=== PATIENT | male | born 1985 | race African-American/Black ===

== ENCOUNTER 2018-11-13 04:37 | Emergency (ER) | payer SELFPAY ==
[~2018-11-13] VITALS: Ht 175.3 cm; Wt 75.0 kg
[2018-11-13] MEDS ORDERED: ONDANSETRON HCL 4MG/2ML INJ IV STA (04:51)
[2018-11-13] MEDS ORDERED: LEVETIRACETAM 500MG PREMIX 100 ML IV ONE (05:00)
[2018-11-13 05:10] LABS: BASOPHILS % 0.5 % (0.0-2.0); EOSINOPHILS % 0.1 % (0.0-5.0); HEMATOCRIT. 36.4 % (42.0-52.0); LYMPHOCYTES % 13.7 % (20.0-50.0); MEAN CORPUSCULAR HEMOGLOBIN 34.5 pg (28.0-32.0); MEAN CORPUSCULAR VOLUME 96.6 fL (80.0-94.0); MEAN PLATELET VOLUME 6.8 fl (7.4-10.4); MONOCYTES % 7.7 % (2.0-8.0); PLATELET 147 x1000/uL (130-400); RED BLOOD CELL COUNT 3.77 mill/uL (4.7-6.1); RED CELL DISTRIBUTION WIDTH 17.4 % (11.6-14.6)
[2018-11-13 05:12] LABS: CHLORIDE 100 mEq/L (98-107)
[2018-11-13 05:16] LABS: ETHANOL BLOOD < 10 mg/dL
[2018-11-13 08:48] LABS: *AMPHETAMINES SCREEN URINE NEGATIVE (NEGATIVE); *BARBITURATES SCREEN URINE NEGATIVE (NEGATIVE); *BENZODIAZEPINES SCREEN URINE NEGATIVE (NEGATIVE); *COCAINE SCREEN URINE NEGATIVE (NEGATIVE); METHADONE URINE SCREEN NEGATIVE (NEGATIVE); OPIATES URINE SCREEN NEGATIVE (NEGATIVE)
[2018-11-13 08:49] LABS: CANNABINOID URINE SCREEN NEGATIVE (NEGATIVE); PHENCYCLIDINE URINE SCREEN NEGATIVE (NEGATIVE)
[2018-11-13] MEDS ORDERED: CHLORDIAZEPOXIDE 25MG CAPSULE PO ONE (10:00)
[2018-11-13 10:10] VITALS: BP 145/94
== END 2018-11-13 10:20 | disposition home or self-care (01) ==
LOC: ER 04:37
DX: R56.9 Unspecified convulsions (principal); F10.20 Alcohol dependence, uncomplicated; Y90.0 Blood alcohol level of less than 20 mg/100 ml
CPT/HCPCS: 36415; 70450; 80053; 80305; 80320; 85025; 96365; 99284; J1953; Z7610; J2405; G0480

== ENCOUNTER 2018-12-08 21:00 | Emergency (ER) | payer SELFPAY ==
[~2018-12-08] VITALS: Ht 172.7 cm; Wt 70.0 kg
[2018-12-08] MEDS ORDERED: LEVETIRACETAM 1000MG/100ML 100 ML IV ONE (21:45)
[2018-12-08] MEDS ORDERED: SODIUM CHLORIDE 0.9% 1,000 ML IV ONE (21:45)
[2018-12-08 22:09] LABS: CLARITY URINE CLOUDY (CLEAR); COLOR URINE YELLOW (YELLOW); KETONES URINE 2+ (NEGATIVE); LEUKOCYTE ESTERASE URINE NEGATIVE (NEGATIVE); NITRITE URINE NEGATIVE (NEGATIVE); OCCULT BLOOD URINE 2+ (NEGATIVE); PROTEIN URINE 3+ (NEGATIVE); SPECIFIC GRAVITY URINE 1.014 (1.005-1.030); UROBILINOGEN URINE 0.2 E.U./dL (0.2-1.0)
[2018-12-08] MEDS ORDERED: DIAZEPAM 5 MG TABLET PO ONE (22:30)
[2018-12-08] MEDS ORDERED: CHLORDIAZEPOXIDE 25MG CAPSULE PO ONE (22:30)
[2018-12-08 22:32] LABS: *AMPHETAMINES SCREEN URINE NEGATIVE (NEGATIVE); *BARBITURATES SCREEN URINE NEGATIVE (NEGATIVE)
[2018-12-08 22:34] LABS: *BENZODIAZEPINES SCREEN URINE PRESUMTIVE POSITIVE (NEGATIVE); *COCAINE SCREEN URINE NEGATIVE (NEGATIVE); CANNABINOID URINE SCREEN NEGATIVE (NEGATIVE); METHADONE URINE SCREEN NEGATIVE (NEGATIVE); OPIATES URINE SCREEN NEGATIVE (NEGATIVE); PHENCYCLIDINE URINE SCREEN NEGATIVE (NEGATIVE)
[2018-12-08 23:45] LABS: CHLORIDE 100 mEq/L (98-107)
[2018-12-08 23:49] LABS: ETHANOL BLOOD < 10 mg/dL
[2018-12-09 00:15] LABS: HEMATOCRIT. 33.2 % (42.0-52.0); HEMOGLOBIN. 11.9 g/dL (14.0-18.0); MEAN CORPUSCULAR HEMOGLOBIN 35.1 pg (28.0-32.0); MEAN CORPUSCULAR VOLUME 97.6 fL (80.0-94.0); MEAN PLATELET VOLUME 7.1 fl (7.4-10.4); PLATELET 110 x1000/uL (130-400); RED CELL DISTRIBUTION WIDTH 16.5 % (11.6-14.6)
[2018-12-09 01:57] LABS: PLATELET ESTIMATE SLIGHTLY DECREASED
[2018-12-09 02:02] VITALS: BP 122/79
== END 2018-12-09 02:08 | disposition home or self-care (01) ==
LOC: ER 21:00
DX: R56.9 Unspecified convulsions (principal); J45.909 Unspecified asthma, uncomplicated; F10.239 Alcohol dependence with withdrawal, unspecified; Y90.0 Blood alcohol level of less than 20 mg/100 ml
CPT/HCPCS: 36415; 80053; 80305; 80320; 81003; 85025; 96365; 99283; C1893; J1953; J7030; Z7610; G0480

== ENCOUNTER 2018-12-31 11:15 | Emergency (ER) | payer SELFPAY ==
[~2018-12-31] VITALS: Ht 167.6 cm; Wt 73.0 kg
[2018-12-31] MEDS ORDERED: SODIUM CHLORIDE 0.9% 1,000 ML IV ONE (12:01)
[2018-12-31] MEDS ORDERED: LORAZEPAM 2MG/ML CPJ IV STA (12:01)
[2018-12-31 12:24] LABS: BASOPHILS % 0.4 % (0.0-2.0); EOSINOPHILS % 0.1 % (0.0-5.0); HEMATOCRIT. 37.9 % (42.0-52.0); HEMOGLOBIN. 13.4 g/dL (14.0-18.0); LYMPHOCYTES % 16.7 % (20.0-50.0); MEAN CORPUSCULAR HEMOGLOBIN 33.9 pg (28.0-32.0); MEAN CORPUSCULAR VOLUME 96.1 fL (80.0-94.0); MEAN PLATELET VOLUME 7.1 fl (7.4-10.4); MONOCYTES % 5.3 % (2.0-8.0); NEUTROPHILS % 77.5 % (40.0-76.0); PLATELET 162 x1000/uL (130-400); RED BLOOD CELL COUNT 3.95 mill/uL (4.7-6.1); RED CELL DISTRIBUTION WIDTH 15.5 % (11.6-14.6)
[2018-12-31 12:31] LABS: CHLORIDE 101 mEq/L (98-107)
[2018-12-31 12:35] LABS: ETHANOL BLOOD < 10 mg/dL
[2018-12-31 12:37] LABS: CLARITY URINE CLEAR (CLEAR); COLOR URINE DARK YELLOW (YELLOW); KETONES URINE 2+ (NEGATIVE); LEUKOCYTE ESTERASE URINE NEGATIVE (NEGATIVE); NITRITE URINE NEGATIVE (NEGATIVE); OCCULT BLOOD URINE 1+ (NEGATIVE); PH URINE 5.5 (4.5-8.0); PROTEIN URINE 3+ (NEGATIVE); SPECIFIC GRAVITY URINE 1.024 (1.005-1.030)
[2018-12-31 12:58] LABS: METHADONE URINE SCREEN NEGATIVE (NEGATIVE)
[2018-12-31 12:59] LABS: *AMPHETAMINES SCREEN URINE NEGATIVE (NEGATIVE); *BARBITURATES SCREEN URINE NEGATIVE (NEGATIVE); *BENZODIAZEPINES SCREEN URINE PRESUMTIVE POSITIVE (NEGATIVE); *COCAINE SCREEN URINE NEGATIVE (NEGATIVE); CANNABINOID URINE SCREEN NEGATIVE (NEGATIVE); OPIATES URINE SCREEN NEGATIVE (NEGATIVE); PHENCYCLIDINE URINE SCREEN NEGATIVE (NEGATIVE)
[2018-12-31] MEDS ORDERED: LORAZEPAM 2MG/ML CPJ IV ONE (14:30)
[2018-12-31] MEDS: CHLORDIAZEPOXIDE 25MG CAPSULE PO SCH ×2 (14:54→15:37)
[2018-12-31 17:45] VITALS: BP 143/90
== END 2018-12-31 17:55 | disposition home or self-care (01) ==
LOC: ER 11:15
DX: F10.239 Alcohol dependence with withdrawal, unspecified (principal); Y90.0 Blood alcohol level of less than 20 mg/100 ml; F15.10 Other stimulant abuse, uncomplicated; G25.2 Other specified forms of tremor
CPT/HCPCS: 36415; 80053; 80305; 80320; 81003; 82962; 85025; 93005; 96374; 96376; 99284; J2060; J7030; G0480

== ENCOUNTER 2019-04-03 09:11 | Emergency (ER) | payer SELFPAY ==
[~2019-04-03] VITALS: Ht 165.1 cm; Wt 79.0 kg
[2019-04-03] MEDS ORDERED: LEVETIRACETAM 500MG PREMIX 100 ML IV ONE (10:30)
[2019-04-03 10:45] LABS: BASOPHILS % 0.2 % (0.0-2.0); EOSINOPHILS % 0.2 % (0.0-5.0); HEMATOCRIT. 39.2 % (42.0-52.0); HEMOGLOBIN. 13.7 g/dL (14.0-18.0); LYMPHOCYTES % 12.6 % (20.0-50.0); MEAN CORPUSCULAR HEMOGLOBIN 32.1 pg (28.0-32.0); MEAN CORPUSCULAR VOLUME 91.8 fL (80.0-94.0); MEAN PLATELET VOLUME 8.1 fl (7.4-10.4); PLATELET 129 x1000/uL (130-400); RED BLOOD CELL COUNT 4.28 mill/uL (4.7-6.1); RED CELL DISTRIBUTION WIDTH 15.2 % (11.6-14.6)
[2019-04-03 10:47] LABS: CHLORIDE 99 mEq/L (98-107)
[2019-04-03 10:55] LABS: ETHANOL BLOOD < 10 mg/dL
[2019-04-03 11:06] LABS: PHENOBARBITAL < 2.1 ug/mL (15.0-40.0); VALPROIC ACID < 3.0 ug/mL (50-100)
[2019-04-03 11:08] LABS: CARBAMAZEPINE < 0.5 ug/mL (4-12)
[2019-04-03 12:00] LABS: CLARITY URINE CLEAR (CLEAR); COLOR URINE YELLOW (YELLOW); KETONES URINE 2+ (NEGATIVE); LEUKOCYTE ESTERASE URINE NEGATIVE (NEGATIVE); NITRITE URINE NEGATIVE (NEGATIVE); OCCULT BLOOD URINE 1+ (NEGATIVE); PROTEIN URINE 3+ (NEGATIVE); SPECIFIC GRAVITY URINE 1.015 (1.005-1.030)
[2019-04-03 12:45] LABS: *AMPHETAMINES SCREEN URINE NEGATIVE (NEGATIVE); *BARBITURATES SCREEN URINE NEGATIVE (NEGATIVE); *BENZODIAZEPINES SCREEN URINE NEGATIVE (NEGATIVE); *COCAINE SCREEN URINE NEGATIVE (NEGATIVE); CANNABINOID URINE SCREEN NEGATIVE (NEGATIVE); METHADONE URINE SCREEN NEGATIVE (NEGATIVE); OPIATES URINE SCREEN NEGATIVE (NEGATIVE); PHENCYCLIDINE URINE SCREEN NEGATIVE (NEGATIVE)
[2019-04-03] MEDS ORDERED: POTASSIUM CHLORIDE 20MEQ TABLET SR PO ONE (12:45)
[2019-04-03 13:31] VITALS: BP 153/99
== END 2019-04-03 13:46 | disposition home or self-care (01) ==
LOC: ER 09:39
DX: R56.9 Unspecified convulsions (principal); E87.6 Hypokalemia; J45.909 Unspecified asthma, uncomplicated; F10.20 Alcohol dependence, uncomplicated; Y90.0 Blood alcohol level of less than 20 mg/100 ml
CPT/HCPCS: 36415; 80053; 80156; 80165; 80184; 80185; 80305; 80320; 81003; 82962; 83690; 85025; 93005; 96365; 99284; J1953; G0480

== ENCOUNTER 2019-04-20 18:24 | Inpatient (IN) | payer SELFPAY ==
[~2019-04-20] VITALS: Ht 172.7 cm; Wt 83.7 kg
[2019-04-20] MEDS ORDERED: SODIUM CHLORIDE 0.9% 1,000 ML IV ONE (21:18)
[2019-04-20 21:29] LABS: BASOPHILS % 0.8 % (0.0-2.0); HEMATOCRIT. 40.2 % (42.0-52.0); HEMOGLOBIN. 14.2 g/dL (14.0-18.0); MEAN CORPUSCULAR HEMOGLOBIN 32.4 pg (28.0-32.0); MEAN CORPUSCULAR VOLUME 91.7 fL (80.0-94.0); MONOCYTES % 5.1 % (2.0-8.0); NEUTROPHILS % 77.1 % (40.0-76.0); PLATELET 171 x1000/uL (130-400); RED BLOOD CELL COUNT 4.38 mill/uL (4.7-6.1); RED CELL DISTRIBUTION WIDTH 14.6 % (11.6-14.6)
[2019-04-20] MEDS ORDERED: LORAZEPAM 2MG/ML CPJ IV ONE (21:30)
[2019-04-20] MEDS ORDERED: LEVETIRACETAM 500MG PREMIX 100 ML IV ONE (21:30)
[2019-04-20 21:35] LABS: CHLORIDE 101 mEq/L (98-107)
[2019-04-20 21:39] LABS: ETHANOL BLOOD < 10 mg/dL
[2019-04-20 21:44] LABS: CREATINE KINASE 158 IU/L (39-308)
[2019-04-20 21:49] LABS: CARBAMAZEPINE < 0.5 ug/mL (4-12); PHENOBARBITAL < 2.1 ug/mL (15.0-40.0)
[2019-04-21] MEDS ORDERED: MORPHINE SULFATE 2 MG/ML CPJ (NOT FOR IM USE) IV ONE (00:30)
[2019-04-21] MEDS ORDERED: ONDANSETRON HCL 4MG/2ML INJ IV ONE (00:30)
[2019-04-21 01:09] LABS: HEPATITIS B SURFACE ANTIGEN NEGATIVE
[2019-04-21 01:39] LABS: HEPATITIS A AB IGM NEGATIVE (NEGATIVE)
[2019-04-21] MEDS ORDERED: MORPHINE SULFATE 2 MG/ML CPJ (NOT FOR IM USE) IV PRN (03:00)
[2019-04-21] MEDS ORDERED: LORAZEPAM 2MG/ML CPJ IV PRN (03:00)
[2019-04-21] MEDS ORDERED: ACETAMINOPHEN 325MG TABLET PO PRN (03:00)
[2019-04-21] MEDS ORDERED: ONDANSETRON HCL 4MG/2ML INJ IV PRN (03:00)
[2019-04-21] MEDS: FAMOTIDINE 20MG/2ML VIAL IV SCH ×2 (03:44→08:10)
[2019-04-21] MEDS: CLONIDINE 0.1MG TABLET PO PRN ×2 (03:44→16:20)
[2019-04-21 04:30] VITALS: BP 139/75
[2019-04-21] MEDS: DEXT 5%/0.45% NACL KCL 10MEQ/L 1,000 ML IV SCH ×2 (04:58→18:07)
[2019-04-21 08:00] VITALS: BP 132/91
[2019-04-21] MEDS: LEVETIRACETAM 500 MG in SODIUM CHLORIDE 0.9% 100 ML IV SCH ×2 (08:11→20:56)
[2019-04-21 11:51] LABS: CLARITY URINE CLEAR (CLEAR); COLOR URINE YELLOW (YELLOW); KETONES URINE 2+ (NEGATIVE); LEUKOCYTE ESTERASE URINE NEGATIVE (NEGATIVE); NITRITE URINE NEGATIVE (NEGATIVE); OCCULT BLOOD URINE NEGATIVE (NEGATIVE); PROTEIN URINE TRACE (NEGATIVE); SPECIFIC GRAVITY URINE 1.007 (1.005-1.030)
[2019-04-21 12:00] VITALS: BP 137/94
[2019-04-21 12:12] LABS: *AMPHETAMINES SCREEN URINE NEGATIVE (NEGATIVE); *BARBITURATES SCREEN URINE NEGATIVE (NEGATIVE); *BENZODIAZEPINES SCREEN URINE NEGATIVE (NEGATIVE); *COCAINE SCREEN URINE NEGATIVE (NEGATIVE); CANNABINOID URINE SCREEN NEGATIVE (NEGATIVE)
[2019-04-21 12:13] LABS: METHADONE URINE SCREEN NEGATIVE (NEGATIVE); OPIATES URINE SCREEN NEGATIVE (NEGATIVE); PHENCYCLIDINE URINE SCREEN NEGATIVE (NEGATIVE)
[2019-04-21 16:01] VITALS: BP 134/94
[2019-04-21 20:00] VITALS: BP 117/76
[2019-04-22] VITALS: BP 128/79
[2019-04-22 04:00] VITALS: BP 129/73
[2019-04-22 05:32] LABS: PROTHROMBIN TIME 10.4 sec (9.6-11.0)
[2019-04-22 05:35] LABS: CHLORIDE 103 mEq/L (98-107)
[2019-04-22] MEDS: DEXT 5%/0.45% NACL KCL 10MEQ/L 1,000 ML IV SCH (05:40)
[2019-04-22 05:46] LABS: LDL CHOLESTEROL 123 mg/dL (5-100)
[2019-04-22 05:47] LABS: HDL CHOLESTEROL 88 mg/dL (40-59)
[2019-04-22 05:51] LABS: GAMMA GLUTAMYL TRANSPEPTIDASE 1660 IU/L (11-50)
[2019-04-22 06:12] LABS: BASOPHILS % 0.3 % (0.0-2.0); EOSINOPHILS % 0.7 % (0.0-5.0); HEMATOCRIT. 37.6 % (42.0-52.0); HEMOGLOBIN. 13.2 g/dL (14.0-18.0); LYMPHOCYTES % 19.7 % (20.0-50.0); MEAN CORPUSCULAR HEMOGLOBIN 32.2 pg (28.0-32.0); MEAN CORPUSCULAR VOLUME 91.5 fL (80.0-94.0); MEAN PLATELET VOLUME 8.3 fl (7.4-10.4); MONOCYTES % 6.9 % (2.0-8.0); NEUTROPHILS % 72.4 % (40.0-76.0); PLATELET 127 x1000/uL (130-400); RED BLOOD CELL COUNT 4.11 mill/uL (4.7-6.1); RED CELL DISTRIBUTION WIDTH 14.2 % (11.6-14.6)
[2019-04-22 08:00] VITALS: BP 130/89
[2019-04-22] MEDS: LEVETIRACETAM 500 MG in SODIUM CHLORIDE 0.9% 100 ML IV SCH (09:46)
[2019-04-22] MEDS: FAMOTIDINE 20MG/2ML VIAL IV SCH (09:46)
[2019-04-22 12:00] VITALS: BP 133/93
[2019-04-22 13:54] VITALS: BP 133/99
[2019-04-23 09:09] LABS: IMMUNOGLOBULIN G 1061 mg/dL (700-1600)
[2019-04-23 13:06] LABS: ANTI-NUCLEAR ANTIBODIES DIRECT Negative (Negative)
[2019-04-25 15:10] LABS: ACTIN (SMOOTH MUSCLE) ANTIBODY 12 Units (0-19)
== END 2019-04-22 14:10 | disposition home or self-care (01) | DRG 282 ==
LOC: ER 19:31 → 6EST 04-21 00:42 → ENRESERV 04-21 01:19
PROVIDERS: ADMIT Hospitalist; ATTEND Hospitalist
DX: K85.90 Acute pancreatitis without necrosis or infection, unspecified (principal); K76.0 Fatty (change of) liver, not elsewhere classified; E80.6 Other disorders of bilirubin metabolism; G40.909 Epilepsy, unspecified, not intractable, without status epilepticus; R74.0 Nonspecific elevation of levels of transaminase and lactic acid dehydrogenase [LDH]
CPT/HCPCS: 36415; 74176; 76700; 80061; 80076; 80156; 80165; 80184; 80185; 80305; 80320; 81003; 82248; 82390; 82550; 82784; 82977; 83735; 84443; 84484; 86038; 86705; 86709; 86803; 87340; 93005; 93970; 96365; 96375; 99285; C1893; J1953; J2060; J2270; J2405; J3490; J7030; J7050; G0480

== ENCOUNTER 2019-08-29 06:39 | Emergency (ER) | payer SELFPAY ==
[~2019-08-29] VITALS: Ht 172.7 cm; Wt 77.0 kg
[2019-08-29 07:10] VITALS: BP 128/70
[2019-08-29] MEDS ORDERED: LEVETIRACETAM 1000MG/100ML 100 ML IV ONE (07:15)
[2019-08-29] MEDS ORDERED: LIDOCAINE HCL/PF 1% 10 MG/ML 5ML VIAL IJ ONE (07:15)
[2019-08-29 08:03] LABS: BASOPHILS % 0.3 % (0.0-2.0); EOSINOPHILS % 0.4 % (0.0-5.0); HEMATOCRIT. 36.9 % (42.0-52.0); MEAN CORPUSCULAR HEMOGLOBIN 33.5 pg (28.0-32.0); MEAN CORPUSCULAR VOLUME 94.9 fL (80.0-94.0); MONOCYTES % 6.8 % (2.0-8.0); NEUTROPHILS % 78.5 % (40.0-76.0); PLATELET 119 x1000/uL (130-400); RED BLOOD CELL COUNT 3.89 mill/uL (4.7-6.1); RED CELL DISTRIBUTION WIDTH 13.7 % (11.6-14.6)
[2019-08-29 08:08] LABS: CHLORIDE 100 mEq/L (98-107)
[2019-08-29 08:11] LABS: ETHANOL BLOOD < 10 mg/dL
[2019-08-29 09:01] LABS: CLARITY URINE CLEAR (CLEAR); COLOR URINE DARK YELLOW (YELLOW); KETONES URINE 1+ (NEGATIVE); LEUKOCYTE ESTERASE URINE NEGATIVE (NEGATIVE); NITRITE URINE NEGATIVE (NEGATIVE); OCCULT BLOOD URINE 2+ (NEGATIVE); PH URINE 5.5 (4.5-8.0); PROTEIN URINE 3+ (NEGATIVE); SPECIFIC GRAVITY URINE 1.017 (1.005-1.030)
[2019-08-29 09:20] LABS: *BARBITURATES SCREEN URINE NEGATIVE (NEGATIVE); *BENZODIAZEPINES SCREEN URINE NEGATIVE (NEGATIVE); *COCAINE SCREEN URINE NEGATIVE (NEGATIVE)
[2019-08-29 09:21] LABS: *AMPHETAMINES SCREEN URINE NEGATIVE (NEGATIVE); CANNABINOID URINE SCREEN NEGATIVE (NEGATIVE); METHADONE URINE SCREEN NEGATIVE (NEGATIVE); PHENCYCLIDINE URINE SCREEN NEGATIVE (NEGATIVE)
[2019-08-31 20:34] LABS: OPIATES URINE SCREEN NEGATIVE (NEGATIVE)
== END 2019-08-29 08:43 | disposition home or self-care (01) ==
LOC: ER 06:39
DX: S01.512A Laceration without foreign body of oral cavity, initial encounter (principal); R56.9 Unspecified convulsions; J45.909 Unspecified asthma, uncomplicated; X58.XXXA Exposure to other specified factors, initial encounter; Y93.89 Activity, other specified; Y92.89 Other specified places as the place of occurrence of the external cause; Y99.8 Other external cause status
CPT/HCPCS: 12011; 36415; 80053; 80305; 80320; 81003; 85025; 96374; 99283; J1953; J3490; G0480

== ENCOUNTER 2019-10-02 18:30 | Emergency (ER) | payer OTHER ==
[~2019-10-02] VITALS: Ht 175.3 cm; Wt 73.0 kg
[2019-10-02] MEDS ORDERED: SODIUM CHLORIDE 0.9% 1,000 ML IV ONE (19:08)
[2019-10-02] MEDS ORDERED: ACETAMINOPHEN 325MG TABLET PO STA (19:08)
[2019-10-02] MEDS ORDERED: CHLORHEXIDINE GLUCONATE 0.12% ORAL MOUTHWASH SSP SCH (19:15)
[2019-10-02] MEDS ORDERED: LEVETIRACETAM 1000MG/100ML 100 ML IV ONE (19:15)
[2019-10-02 19:36] LABS: BASOPHILS % 0.9 % (0.0-2.0); EOSINOPHILS % 0.3 % (0.0-5.0); HEMATOCRIT. 37.1 % (42.0-52.0); HEMOGLOBIN. 12.9 g/dL (14.0-18.0); LYMPHOCYTES % 29.9 % (20.0-50.0); MEAN CORPUSCULAR HEMOGLOBIN 33.8 pg (28.0-32.0); MEAN CORPUSCULAR VOLUME 97.4 fL (80.0-94.0); MEAN PLATELET VOLUME 8.3 fl (7.4-10.4); MONOCYTES % 7.8 % (2.0-8.0); NEUTROPHILS % 61.1 % (40.0-76.0); PLATELET 258 x1000/uL (130-400); RED BLOOD CELL COUNT 3.81 mill/uL (4.7-6.1); RED CELL DISTRIBUTION WIDTH 13.6 % (11.6-14.6)
[2019-10-02 19:39] LABS: CHLORIDE 101 mEq/L (98-107)
[2019-10-02 21:33] LABS: CLARITY URINE CLEAR (CLEAR); COLOR URINE YELLOW (YELLOW); KETONES URINE TRACE (NEGATIVE); LEUKOCYTE ESTERASE URINE NEGATIVE (NEGATIVE); NITRITE URINE NEGATIVE (NEGATIVE); OCCULT BLOOD URINE 1+ (NEGATIVE); PH URINE 5.5 (4.5-8.0); PROTEIN URINE 2+ (NEGATIVE); SPECIFIC GRAVITY URINE 1.014 (1.005-1.030)
[2019-10-02 22:23] VITALS: BP 124/71
== END 2019-10-02 22:30 | disposition home or self-care (01) ==
LOC: ER 18:30
DX: S02.2XXA Fracture of nasal bones, initial encounter for closed fracture (principal); R56.9 Unspecified convulsions; X58.XXXA Exposure to other specified factors, initial encounter; Y93.89 Activity, other specified; Y92.89 Other specified places as the place of occurrence of the external cause; Y99.8 Other external cause status; J45.909 Unspecified asthma, uncomplicated
CPT/HCPCS: 12011; 36415; 70486; 80048; 81003; 85025; 96365; 99285; J1953; J7030

== ENCOUNTER 2019-10-02 22:43 | Emergency (ER) | payer OTHER ==
[~2019-10-02] VITALS: Ht 170.2 cm; Wt 81.8 kg
[2019-10-02] MEDS ORDERED: LORAZEPAM 1MG TABLET PO ONE (23:45)
[2019-10-02] MEDS ORDERED: BACITRACIN 15GM TUBE TOP ONE (23:45)
[2019-10-03 01:21] VITALS: BP 129/81
[2019-10-03] MEDS ORDERED: LEVETIRACETAM 500MG/5ML CUP PO ONE (01:30)
== END 2019-10-03 02:07 | disposition home or self-care (01) ==
LOC: ER 22:43
DX: G40.909 Epilepsy, unspecified, not intractable, without status epilepticus (principal); S01.21XA Laceration without foreign body of nose, initial encounter; S01.511A Laceration without foreign body of lip, initial encounter; W22.8XXA Striking against or struck by other objects, initial encounter; R03.0 Elevated blood-pressure reading, without diagnosis of hypertension; Y93.89 Activity, other specified; Y92.89 Other specified places as the place of occurrence of the external cause; S09.8XXA Other specified injuries of head, initial encounter; Z91.14 Patient's other noncompliance with medication regimen
CPT/HCPCS: 82962; 99284

== ENCOUNTER 2019-10-10 19:32 | Inpatient (IN) | payer OTHER ==
[~2019-10-10] VITALS: Ht 167.6 cm; Wt 72.6 kg
[2019-10-10] MEDS ORDERED: MORPHINE SULFATE 4 MG/ML CPJ (NOT FOR IM USE) IV STA (20:07)
[2019-10-10] MEDS ORDERED: IBUPROFEN 600MG TABLET PO ONE (20:15)
[2019-10-10] MEDS ORDERED: LIDOCAINE HCL 1% 20ML VIAL (Pyxis) INJ INFIL ONE (20:15)
[2019-10-10 20:59] LABS: BASOPHILS % 0.3 % (0.0-2.0); CHLORIDE 102 mEq/L (98-107); EOSINOPHILS % 0.1 % (0.0-5.0); HEMATOCRIT. 31.4 % (42.0-52.0); HEMOGLOBIN. 11.4 g/dL (14.0-18.0); LYMPHOCYTES % 11.7 % (20.0-50.0); MEAN CORPUSCULAR HEMOGLOBIN 33.6 pg (28.0-32.0); MEAN CORPUSCULAR VOLUME 92.7 fL (80.0-94.0); MEAN PLATELET VOLUME 7.8 fl (7.4-10.4); MONOCYTES % 13.5 % (2.0-8.0); NEUTROPHILS % 74.4 % (40.0-76.0); PLATELET 337 x1000/uL (130-400); RED BLOOD CELL COUNT 3.38 mill/uL (4.7-6.1); RED CELL DISTRIBUTION WIDTH 14.4 % (11.6-14.6)
[2019-10-10] MEDS ORDERED: CEFTRIAXONE 1 G PREMIX 50 ML IV ONE (22:00)
[2019-10-10] MEDS ORDERED: VANCOMYCIN 1 G PREMIX 200 ML IV SCH (22:00)
[2019-10-10] MEDS ORDERED: MORPHINE SULFATE 4 MG/ML CPJ (NOT FOR IM USE) IV ONE (22:00)
[2019-10-10] MEDS ORDERED: ACETAMINOPHEN 325MG TABLET PO ONE (22:00)
[2019-10-10 23:45] VITALS: BP 124/77
[2019-10-11] VITALS: BP 124/77
[2019-10-11] MEDS ORDERED: MORPHINE SULFATE 2 MG/ML CPJ (NOT FOR IM USE) IV PRN (00:15)
[2019-10-11] MEDS ORDERED: KETOROLAC 30MG/ML VIAL IV PRN (00:15)
[2019-10-11] MEDS ORDERED: ACETAMINOPHEN 325MG TABLET PO PRN ×2 (00:15)
[2019-10-11] MEDS ORDERED: ZOLPIDEM TARTRATE 5MG TABLET PO PRN (00:15)
[2019-10-11] MEDS ORDERED: ONDANSETRON HCL 4MG/2ML INJ IV PRN (00:15)
[2019-10-11] MEDS ORDERED: KEPP500 MT (00:40)
[2019-10-11] MEDS ORDERED: THIA100T72 MT (00:40)
[2019-10-11] MEDS ORDERED: POTASSIUM CHLORIDE 20MEQ TABLET SR PO NR (01:00)
[2019-10-11 04:00] VITALS: BP 99/66
[2019-10-11] MEDS: INDOMETHACIN 25MG CAPSULE PO SCH ×3 (05:42→21:25)
[2019-10-11] MEDS: SODIUM CHLORIDE 0.9% INJ 3ML FLUSH IVF SCH ×3 (05:42→21:25)
[2019-10-11 08:00] VITALS: BP 110/72
[2019-10-11] MEDS: FAMOTIDINE 20MG TABLET PO SCH ×2 (08:45→21:02)
[2019-10-11] MEDS: LEVETIRACETAM 500MG TABLET PO SCH ×2 (08:45→21:02)
[2019-10-11] MEDS ORDERED: LEVETIRACETAM 500MG TABLET PO SCH (09:00)
[2019-10-11] MEDS: THIAMINE HCL 100MG TABLET PO SCH (09:41)
[2019-10-11] MEDS ORDERED: MAGNESIUM 2 G PREMIX 50 ML IV SCH (10:00)
[2019-10-11] MEDS: HYDROCODONE/ACETAMINOPHEN 10/325MG TABLET PO PRN (10:35)
[2019-10-11 12:00] VITALS: BP 137/89
[2019-10-11 16:00] VITALS: BP 121/81
[2019-10-11] MEDS: CEFTRIAXONE 1 G PREMIX 50 ML IV SCH (17:20)
[2019-10-11 20:00] VITALS: BP 105/61
[2019-10-11] MEDS: VANCOMYCIN 1250MG in DEXTROSE 5% WATER 250ML IV SCH (21:01)
[2019-10-12] VITALS: BP 111/69
[2019-10-12] MEDS: VANCOMYCIN 1250MG in DEXTROSE 5% WATER 250ML IV SCH ×3 (03:26→21:10)
[2019-10-12 04:00] VITALS: BP 101/60
[2019-10-12] MEDS: SODIUM CHLORIDE 0.9% INJ 3ML FLUSH IVF SCH ×3 (06:12→21:11)
[2019-10-12] MEDS: INDOMETHACIN 25MG CAPSULE PO SCH ×3 (06:12→21:11)
[2019-10-12 08:00] VITALS: BP 104/65
[2019-10-12] MEDS: LEVETIRACETAM 500MG TABLET PO SCH ×2 (08:48→21:10)
[2019-10-12] MEDS: FAMOTIDINE 20MG TABLET PO SCH ×2 (08:48→21:10)
[2019-10-12] MEDS: THIAMINE HCL 100MG TABLET PO SCH (08:48)
[2019-10-12 12:00] VITALS: BP 104/46
[2019-10-12 16:00] VITALS: BP 106/67
[2019-10-12] MEDS: CEFTRIAXONE 1 G PREMIX 50 ML IV SCH (17:14)
[2019-10-12 20:00] VITALS: BP 113/66
[2019-10-13] VITALS: BP 117/65
[2019-10-13] MEDS: VANCOMYCIN 1250MG in DEXTROSE 5% WATER 250ML IV SCH (03:25)
[2019-10-13 04:00] VITALS: BP 98/50
[2019-10-13] MEDS: INDOMETHACIN 25MG CAPSULE PO SCH ×2 (06:29→13:54)
[2019-10-13] MEDS: SODIUM CHLORIDE 0.9% INJ 3ML FLUSH IVF SCH ×2 (06:29→14:35)
[2019-10-13 07:55] LABS: CHLORIDE 106 mEq/L (98-107)
[2019-10-13 08:00] VITALS: BP 125/86
[2019-10-13] MEDS: FAMOTIDINE 20MG TABLET PO SCH (08:25)
[2019-10-13] MEDS: LEVETIRACETAM 500MG TABLET PO SCH (08:25)
[2019-10-13] MEDS: THIAMINE HCL 100MG TABLET PO SCH (08:25)
[2019-10-13 09:16] LABS: CLARITY URINE CLOUDY (CLEAR); COLOR URINE YELLOW (YELLOW); KETONES URINE NEGATIVE (NEGATIVE); LEUKOCYTE ESTERASE URINE 2+ (NEGATIVE); NITRITE URINE NEGATIVE (NEGATIVE); OCCULT BLOOD URINE NEGATIVE (NEGATIVE); PH URINE 5.5 (4.5-8.0); PROTEIN URINE NEGATIVE (NEGATIVE); SPECIFIC GRAVITY URINE 1.015 (1.005-1.030); UROBILINOGEN URINE 0.2 E.U./dL (0.2-1.0)
[2019-10-13] MEDS: HYDROCODONE/ACETAMINOPHEN 10/325MG TABLET PO PRN (11:36)
[2019-10-13 12:00] VITALS: BP 117/70
[2019-10-13] MEDS ORDERED: VANCOMYCIN 1 G PREMIX 200 ML IV SCH (12:00)
[2019-10-13 16:00] VITALS: BP 119/69
[2019-10-13 16:41] VITALS: BP 117/70
[2019-10-15 04:07] LABS: NEISSERIA GONORRHOEAE NAA Negative (Negative)
== END 2019-10-13 17:11 | disposition home or self-care (01) | DRG 554 ==
LOC: ER 19:32 → EDBEDREQTM 22:28 → EDBEDREQ 22:28 → EDBEDREQSVC 22:28 → ENRESERV 22:50 → 6EST 23:49
PROVIDERS: ADMIT Internal Medicine; ATTEND Internal Medicine
PROC: 0S9D3ZZ Drainage of Left Knee Joint, Percutaneous Approach (ICD-10-PCS; principal; 2019-10-10)
DX: M17.12 Unilateral primary osteoarthritis, left knee (principal); G40.909 Epilepsy, unspecified, not intractable, without status epilepticus; E83.42 Hypomagnesemia; J45.909 Unspecified asthma, uncomplicated; M10.9 Gout, unspecified
CPT/HCPCS: 36415; 73560; 80048; 80053; 80202; 81003; 83605; 83735; 84550; 85025; 85651; 86140; 87491; 87591; 89060; 97162; 99285; J0696; J2270; J3370; J3475; J3490; J7060

== ENCOUNTER 2019-11-08 11:34 | Emergency (ER) | payer OTHER ==
[~2019-11-08] VITALS: Ht 167.6 cm; Wt 82.0 kg
[~2019-11-08 11:34] MED LIST: KEPP500 MT; THIA100T72 MT
[2019-11-08] MEDS ORDERED: LORAZEPAM 2MG/ML CPJ IV ONE (12:15)
[2019-11-08 12:18] LABS: BASOPHILS % 0.4 % (0.0-2.0); EOSINOPHILS % 0.1 % (0.0-5.0); HEMOGLOBIN. 12.6 g/dL (14.0-18.0); LYMPHOCYTES % 16.9 % (20.0-50.0); MEAN CORPUSCULAR HEMOGLOBIN 32.8 pg (28.0-32.0); MEAN CORPUSCULAR VOLUME 93.9 fL (80.0-94.0); MEAN PLATELET VOLUME 7.3 fl (7.4-10.4); MONOCYTES % 6.8 % (2.0-8.0); NEUTROPHILS % 75.8 % (40.0-76.0); PLATELET 110 x1000/uL (130-400); RED BLOOD CELL COUNT 3.84 mill/uL (4.7-6.1); RED CELL DISTRIBUTION WIDTH 19.7 % (11.6-14.6)
[2019-11-08 12:20] LABS: CHLORIDE 105 mEq/L (98-107)
[2019-11-08 12:24] LABS: ETHANOL BLOOD < 10 mg/dL
[2019-11-08] MEDS ORDERED: FOLIC ACID 1 MG, THIAMINE HCL 100 MG, MVI, ADULT NO.1 10 ML in DEXTROSE 5% WATER 1,000 ML IV ONE ×4 (12:30)
[2019-11-08] MEDS ORDERED: FOLIC ACID 1 MG, MVI, ADULT NO.1 10 ML in DEXTROSE 5% WATER 1,000 ML IV SCH ×3 (12:45)
[2019-11-08 13:24] LABS: CLARITY URINE CLEAR (CLEAR); COLOR URINE DARK YELLOW (YELLOW); KETONES URINE 2+ (NEGATIVE); LEUKOCYTE ESTERASE URINE TRACE (NEGATIVE); NITRITE URINE NEGATIVE (NEGATIVE); OCCULT BLOOD URINE 2+ (NEGATIVE); PROTEIN URINE 3+ (NEGATIVE); SPECIFIC GRAVITY URINE 1.023 (1.005-1.030)
[2019-11-08 13:35] LABS: *AMPHETAMINES SCREEN URINE NEGATIVE (NEGATIVE); *BARBITURATES SCREEN URINE NEGATIVE (NEGATIVE); *BENZODIAZEPINES SCREEN URINE NEGATIVE (NEGATIVE)
[2019-11-08 13:36] LABS: *COCAINE SCREEN URINE NEGATIVE (NEGATIVE); CANNABINOID URINE SCREEN NEGATIVE (NEGATIVE); METHADONE URINE SCREEN NEGATIVE (NEGATIVE); OPIATES URINE SCREEN NEGATIVE (NEGATIVE); PHENCYCLIDINE URINE SCREEN NEGATIVE (NEGATIVE)
[2019-11-08 15:11] VITALS: BP 150/96
== END 2019-11-08 15:14 | disposition home or self-care (01) ==
LOC: ER 11:48 → CANBEDREQ 16:43
DX: F10.239 Alcohol dependence with withdrawal, unspecified (principal); Y90.0 Blood alcohol level of less than 20 mg/100 ml; K70.10 Alcoholic hepatitis without ascites; D69.6 Thrombocytopenia, unspecified; J45.909 Unspecified asthma, uncomplicated; Z79.899 Other long term (current) drug therapy
CPT/HCPCS: 36415; 70450; 71045; 80053; 80305; 80320; 81003; 83690; 85025; 93005; 96365; 96366; 96375; 99285; J2060; J3490; J7070; J3411; G0480

== ENCOUNTER 2019-11-19 17:36 | Emergency (ER) | payer OTHER ==
[~2019-11-19] VITALS: Ht 167.6 cm; Wt 73.0 kg
[2019-11-19] MEDS ORDERED: ONDANSETRON HCL 4MG/2ML INJ IV STA (18:16)
[2019-11-19] MEDS ORDERED: SODIUM CHLORIDE 0.9% 1,000 ML IV ONE (18:16)
[2019-11-19] MEDS ORDERED: LEVETIRACETAM 1000MG/100ML 100 ML IV ONE (18:30)
[2019-11-19 18:31] LABS: BASOPHILS % 0.6 % (0.0-2.0); HEMOGLOBIN. 13.6 g/dL (14.0-18.0); LYMPHOCYTES % 19.3 % (20.0-50.0); MEAN CORPUSCULAR HEMOGLOBIN 33.1 pg (28.0-32.0); MEAN CORPUSCULAR VOLUME 95.2 fL (80.0-94.0); MONOCYTES % 6.9 % (2.0-8.0); NEUTROPHILS % 73.2 % (40.0-76.0); PLATELET 225 x1000/uL (130-400); RED CELL DISTRIBUTION WIDTH 19.1 % (11.6-14.6)
[2019-11-19 18:42] LABS: CHLORIDE 106 mEq/L (98-107)
[2019-11-19 18:46] LABS: ETHANOL BLOOD < 10 mg/dL
[2019-11-19 18:54] LABS: CLARITY URINE CLEAR (CLEAR); COLOR URINE YELLOW (YELLOW); KETONES URINE 2+ (NEGATIVE); LEUKOCYTE ESTERASE URINE NEGATIVE (NEGATIVE); NITRITE URINE NEGATIVE (NEGATIVE); OCCULT BLOOD URINE 2+ (NEGATIVE); PROTEIN URINE 3+ (NEGATIVE); SPECIFIC GRAVITY URINE 1.016 (1.005-1.030); UROBILINOGEN URINE 0.2 E.U./dL (0.2-1.0)
[2019-11-19 19:08] LABS: *AMPHETAMINES SCREEN URINE NEGATIVE (NEGATIVE); *BARBITURATES SCREEN URINE NEGATIVE (NEGATIVE); *BENZODIAZEPINES SCREEN URINE NEGATIVE (NEGATIVE)
[2019-11-19 19:09] LABS: *COCAINE SCREEN URINE NEGATIVE (NEGATIVE); METHADONE URINE SCREEN NEGATIVE (NEGATIVE); OPIATES URINE SCREEN NEGATIVE (NEGATIVE); PHENCYCLIDINE URINE SCREEN NEGATIVE (NEGATIVE)
[2019-11-19 19:10] LABS: CANNABINOID URINE SCREEN NEGATIVE (NEGATIVE)
[2019-11-19 20:00] VITALS: BP 140/104
== END 2019-11-19 21:19 | disposition home or self-care (01) ==
LOC: ER 17:36
DX: G40.909 Epilepsy, unspecified, not intractable, without status epilepticus (principal); R11.0 Nausea; R03.0 Elevated blood-pressure reading, without diagnosis of hypertension
CPT/HCPCS: 36415; 80053; 80305; 80320; 81003; 82962; 85025; 96365; 96366; 96375; 99284; J1953; J2405; J7030; G0480

== ENCOUNTER 2019-12-07 19:02 | Inpatient (IN) | payer OTHER ==
[~2019-12-07] VITALS: Ht 165.1 cm; Wt 73.0 kg
[2019-12-07] MEDS ORDERED: SODIUM CHLORIDE 0.9% 1,000 ML IV ONE ×2 (19:16→21:00)
[2019-12-07] MEDS ORDERED: KETOROLAC 30MG/ML VIAL IV STA (19:16)
[2019-12-07] MEDS ORDERED: ONDANSETRON HCL 4MG/2ML INJ IV STA (19:16)
[2019-12-07 19:43] LABS: INR 1.1; PROTHROMBIN TIME 12.3 sec (9.6-11.0)
[2019-12-07 19:45] LABS: CHLORIDE 101 mEq/L (98-107)
[2019-12-07 19:50] LABS: BASOPHILS % 0.5 % (0.0-2.0); HEMATOCRIT. 40.9 % (42.0-52.0); HEMOGLOBIN. 14.4 g/dL (14.0-18.0); LYMPHOCYTES % 16.3 % (20.0-50.0); MEAN CORPUSCULAR HEMOGLOBIN 32.6 pg (28.0-32.0); MEAN CORPUSCULAR VOLUME 92.3 fL (80.0-94.0); MEAN PLATELET VOLUME 8.2 fl (7.4-10.4); MONOCYTES % 5.3 % (2.0-8.0); NEUTROPHILS % 77.9 % (40.0-76.0); PLATELET 143 x1000/uL (130-400); RED BLOOD CELL COUNT 4.43 mill/uL (4.7-6.1)
[2019-12-07] MEDS ORDERED: MORPHINE SULFATE 2 MG/ML CPJ (NOT FOR IM USE) IV PRN (23:15)
[2019-12-07 23:50] VITALS: BP 149/96
[2019-12-08] MEDS ORDERED: ONDANSETRON HCL 4MG/2ML INJ IV PRN (00:45)
[2019-12-08] MEDS ORDERED: LEVETIRACETAM 500 MG in SODIUM CHLORIDE 0.9% 100 ML IV SCH (00:45)
[2019-12-08 00:51] VITALS: BP 148/96
[2019-12-08] MEDS: MORPHINE SULFATE 2 MG/ML CPJ (NOT FOR IM USE) IV PRN ×6 (01:33→21:25)
[2019-12-08] MEDS ORDERED: FOLIC ACID 1 MG, THIAMINE HCL 100 MG, MVI, ADULT NO.1 10 ML in DEXTROSE 5% WATER 1,000 ML IV NR ×4 (03:00)
[2019-12-08 04:00] VITALS: BP 159/88
[2019-12-08 08:00] VITALS: BP 146/87
[2019-12-08 08:19] LABS: BASOPHILS % 0.2 % (0.0-2.0); EOSINOPHILS % 0.1 % (0.0-5.0); HEMATOCRIT. 37.6 % (42.0-52.0); HEMOGLOBIN. 13.3 g/dL (14.0-18.0); LYMPHOCYTES % 14.4 % (20.0-50.0); MEAN CORPUSCULAR HEMOGLOBIN 32.6 pg (28.0-32.0); MEAN CORPUSCULAR VOLUME 92.4 fL (80.0-94.0); MEAN PLATELET VOLUME 8.1 fl (7.4-10.4); NEUTROPHILS % 78.3 % (40.0-76.0); PLATELET 98 x1000/uL (130-400); RED BLOOD CELL COUNT 4.07 mill/uL (4.7-6.1); RED CELL DISTRIBUTION WIDTH 18.6 % (11.6-14.6)
[2019-12-08 08:38] LABS: CHLORIDE 100 mEq/L (98-107)
[2019-12-08 08:38] LABS: CLARITY URINE CLEAR (CLEAR); COLOR URINE YELLOW (YELLOW); KETONES URINE 3+ (NEGATIVE); LEUKOCYTE ESTERASE URINE NEGATIVE (NEGATIVE); NITRITE URINE NEGATIVE (NEGATIVE); OCCULT BLOOD URINE NEGATIVE (NEGATIVE); PH URINE 5.5 (4.5-8.0); PROTEIN URINE TRACE (NEGATIVE); SPECIFIC GRAVITY URINE 1.011 (1.005-1.030)
[2019-12-08 08:43] LABS: AMYLASE 126 IU/L (25-115)
[2019-12-08 08:45] LABS: LDL CHOLESTEROL 90 mg/dL (5-100)
[2019-12-08 08:47] LABS: HDL CHOLESTEROL 85 mg/dL (40-59)
[2019-12-08 08:50] LABS: *AMPHETAMINES SCREEN URINE NEGATIVE (NEGATIVE); *BARBITURATES SCREEN URINE NEGATIVE (NEGATIVE); *BENZODIAZEPINES SCREEN URINE NEGATIVE (NEGATIVE); *COCAINE SCREEN URINE NEGATIVE (NEGATIVE); METHADONE URINE SCREEN NEGATIVE (NEGATIVE); OPIATES URINE SCREEN PRESUMTIVE POSITIVE (NEGATIVE)
[2019-12-08 08:51] LABS: CANNABINOID URINE SCREEN NEGATIVE (NEGATIVE); PHENCYCLIDINE URINE SCREEN NEGATIVE (NEGATIVE)
[2019-12-08] MEDS: LEVETIRACETAM 500MG PREMIX 100 ML IV SCH ×2 (09:24→21:25)
[2019-12-08] MEDS: PANTOPRAZOLE SODIUM 40 MG/VIAL IV SCH (09:24)
[2019-12-08 12:00] VITALS: BP 151/98
[2019-12-08] MEDS: AMLODIPINE 5MG TABLET PO SCH (13:10)
[2019-12-08] MEDS: DEXT 5%/0.45% NACL KCL 20MEQ/L 1,000 ML IV SCH ×2 (13:37→19:45)
[2019-12-08 16:00] VITALS: BP 143/93
[2019-12-08] MEDS ORDERED: MAGNESIUM 2 G PREMIX 50 ML IV SCH (16:00)
[2019-12-08 20:00] VITALS: BP 138/104
[2019-12-09] VITALS: BP 123/84
[2019-12-09] MEDS: MORPHINE SULFATE 2 MG/ML CPJ (NOT FOR IM USE) IV PRN ×2 (01:42→08:29)
[2019-12-09] MEDS: DEXT 5%/0.45% NACL KCL 20MEQ/L 1,000 ML IV SCH (03:44)
[2019-12-09 04:00] VITALS: BP 127/89
[2019-12-09 05:57] LABS: CHLORIDE 98 mEq/L (98-107)
[2019-12-09 08:00] VITALS: BP_SYST 112; BP_SYST 121; BP_DIAS 83; BP_DIAS 84
[2019-12-09] MEDS ORDERED: POTASSIUM CHLORIDE 20MEQ TABLET SR PO SCH (08:15)
[2019-12-09] MEDS: PANTOPRAZOLE SODIUM 40 MG/VIAL IV SCH (08:28)
[2019-12-09] MEDS: LEVETIRACETAM 500MG PREMIX 100 ML IV SCH (08:28)
[2019-12-09] MEDS: AMLODIPINE 5MG TABLET PO SCH (08:29)
[2019-12-09 12:00] VITALS: BP 124/81
[2019-12-09 15:04] VITALS: BP 124/81
== END 2019-12-09 15:58 | disposition home or self-care (01) | DRG 440 ==
LOC: ER 19:02 → 6EST 21:43 → ENRESERV 23:22
PROVIDERS: ADMIT Internal Medicine; ATTEND Internal Medicine
DX: K85.90 Acute pancreatitis without necrosis or infection, unspecified (principal); E83.42 Hypomagnesemia; E87.6 Hypokalemia; F10.10 Alcohol abuse, uncomplicated; G40.909 Epilepsy, unspecified, not intractable, without status epilepticus; J45.909 Unspecified asthma, uncomplicated; I10 Essential (primary) hypertension; R16.0 Hepatomegaly, not elsewhere classified; R74.0 Nonspecific elevation of levels of transaminase and lactic acid dehydrogenase [LDH]; Z71.41 Alcohol abuse counseling and surveillance of alcoholic
CPT/HCPCS: 36415; 76705; 80048; 80053; 80061; 80305; 80320; 81003; 82150; 83735; 84484; 85025; 93005; 99285; C9113; J1885; J1953; J2270; J2405; J3411; J3475; J3490; J7030; J7070; G0480

== ENCOUNTER 2020-01-20 13:54 | Inpatient (IN) | payer OTHER ==
[~2020-01-20] VITALS: Ht 165.1 cm; Wt 69.4 kg
[~2020-01-20 13:54] MED LIST changes: +ALBU18HF2 IH
[2020-01-20] MEDS ORDERED: SODIUM CHLORIDE 0.9% 1,000 ML IV ONE (14:12)
[2020-01-20] MEDS ORDERED: MORPHINE SULFATE 4 MG/ML CPJ (NOT FOR IM USE) IV ONE (14:30)
[2020-01-20] MEDS ORDERED: CHLORDIAZEPOXIDE 25MG CAPSULE PO ONE (14:30)
[2020-01-20 15:15] LABS: BASOPHILS % 0.7 % (0.0-2.0); HEMATOCRIT. 38.8 % (42.0-52.0); HEMOGLOBIN. 13.3 g/dL (14.0-18.0); LYMPHOCYTES % 17.7 % (20.0-50.0); MEAN CORPUSCULAR HEMOGLOBIN 32.7 pg (28.0-32.0); MEAN PLATELET VOLUME 7.3 fl (7.4-10.4); MONOCYTES % 7.1 % (2.0-8.0); NEUTROPHILS % 74.5 % (40.0-76.0); PLATELET 148 x1000/uL (130-400); RED BLOOD CELL COUNT 4.08 mill/uL (4.7-6.1); RED CELL DISTRIBUTION WIDTH 16.6 % (11.6-14.6)
[2020-01-20 15:19] LABS: INR 1.1; PROTHROMBIN TIME 11.9 sec (9.6-11.0)
[2020-01-20 15:22] LABS: CHLORIDE 107 mEq/L (98-107)
[2020-01-20 15:38] LABS: CLARITY URINE CLEAR (CLEAR); COLOR URINE DARK YELLOW (YELLOW); KETONES URINE 2+ (NEGATIVE); LEUKOCYTE ESTERASE URINE NEGATIVE (NEGATIVE); NITRITE URINE NEGATIVE (NEGATIVE); OCCULT BLOOD URINE 1+ (NEGATIVE); PROTEIN URINE 3+ (NEGATIVE)
[2020-01-20] MEDS ORDERED: ONDANSETRON HCL 4MG/2ML INJ IV PRN (17:45)
[2020-01-20] MEDS ORDERED: CLONIDINE 0.1MG TABLET PO PRN (17:45)
[2020-01-20] MEDS ORDERED: IPRATROPIUM/ALBUTEROL 0.5-3(2.5)MG/3ML NEB NEB PRN (17:45)
[2020-01-20] MEDS ORDERED: DOCUSATE SODIUM 100MG CAPSULE PO PRN (17:45)
[2020-01-20] MEDS ORDERED: GUAIFENESIN 200MG/10ML SUGAR FREE UDC PO PRN (17:45)
[2020-01-20] MEDS ORDERED: MAGNESIUM/ALUMINUM HYDROXIDE/SIMETHICONE 30ML UDC PO PRN (17:45)
[2020-01-20] MEDS ORDERED: HYDRALAZINE 20MG/ML VIAL IV PRN (17:45)
[2020-01-20] MEDS ORDERED: ACETAMINOPHEN 325MG TABLET PO PRN (17:45)
[2020-01-20] MEDS: SODIUM CHLORIDE 0.45% 1,000 ML IV SCH (18:49)
[2020-01-20] MEDS: DIPHENHYDRAMINE 50MG/ML VIAL IV PRN ×2 (18:52→23:57)
[2020-01-20] MEDS: LORAZEPAM 2MG/ML CPJ IV PRN ×2 (18:52→23:57)
[2020-01-20] MEDS ORDERED: MVI, ADULT NO.1 10 ML, FOLIC ACID 1 MG, THIAMINE HCL 100 MG in SODIUM CHLORIDE 0.9% 1,0... IV NR ×4 (20:00)
[2020-01-20] MEDS ORDERED: ENOXAPARIN 40MG/0.4ML SYR SUBCUT SCH (20:00)
[2020-01-20 21:33] VITALS: BP 149/107
[2020-01-20 22:05] VITALS: BP 149/107
[2020-01-20] MEDS: HYDROCODONE/ACETAMINOPHEN 10/325MG TABLET PO PRN (22:21)
[2020-01-20] MEDS: SODIUM CHLORIDE 0.9% INJ 3ML FLUSH IVF SCH (22:21)
[2020-01-21] VITALS: BP 139/102
[2020-01-21 04:00] VITALS: BP 129/93
[2020-01-21] MEDS: SODIUM CHLORIDE 0.9% INJ 3ML FLUSH IVF SCH (05:02)
[2020-01-21] MEDS: SODIUM CHLORIDE 0.45% 1,000 ML IV SCH (05:03)
[2020-01-21 06:28] LABS: CHLORIDE 101 mEq/L (98-107)
[2020-01-21 06:42] LABS: BASOPHILS % 0.2 % (0.0-2.0); EOSINOPHILS % 0.2 % (0.0-5.0); HEMATOCRIT. 35.8 % (42.0-52.0); HEMOGLOBIN. 12.6 g/dL (14.0-18.0); LYMPHOCYTES % 19.8 % (20.0-50.0); MEAN CORPUSCULAR HEMOGLOBIN 33.1 pg (28.0-32.0); MEAN CORPUSCULAR VOLUME 94.4 fL (80.0-94.0); MEAN PLATELET VOLUME 7.9 fl (7.4-10.4); NEUTROPHILS % 70.8 % (40.0-76.0); PLATELET 106 x1000/uL (130-400); RED BLOOD CELL COUNT 3.79 mill/uL (4.7-6.1); RED CELL DISTRIBUTION WIDTH 16.3 % (11.6-14.6)
[2020-01-21 08:00] VITALS: BP 125/90
[2020-01-21 08:23] VITALS: BP 129/93
[2020-01-21] MEDS: HYDROCODONE/ACETAMINOPHEN 10/325MG TABLET PO PRN (08:23)
[2020-01-21] MEDS ORDERED: LEVETIRACETAM 500MG TABLET PO SCH (09:00)
[2020-01-21] MEDS ORDERED: POTASSIUM CHLORIDE 20MEQ TABLET SR PO NR (11:15)
== END 2020-01-21 12:30 | disposition left against medical advice (07) | DRG 439 ==
LOC: ER 14:12 → EDBEDREQ 16:40 → EDBEDREQTM 16:40 → ENRESERV 20:18 → 5WST 21:00
PROVIDERS: ADMIT Internal Medicine; ATTEND Internal Medicine
DX: K85.90 Acute pancreatitis without necrosis or infection, unspecified (principal); E87.1 Hypo-osmolality and hyponatremia; J45.909 Unspecified asthma, uncomplicated; K59.00 Constipation, unspecified; R74.8 Abnormal levels of other serum enzymes; R74.0 Nonspecific elevation of levels of transaminase and lactic acid dehydrogenase [LDH]; G40.909 Epilepsy, unspecified, not intractable, without status epilepticus; Z53.29 Procedure and treatment not carried out because of patient's decision for other reasons; F41.1 Generalized anxiety disorder; F10.10 Alcohol abuse, uncomplicated; Y90.9 Presence of alcohol in blood, level not specified; Z79.899 Other long term (current) drug therapy; Z91.19 Patient's noncompliance with other medical treatment and regimen
CPT/HCPCS: 36415; 76700; 80053; 81003; 85025; 93005; 99285; J1200; J1650; J2060; J2270; J3411; J3490; J7030

== ENCOUNTER 2020-02-07 16:06 | Emergency (ER) | payer OTHER ==
[~2020-02-07] VITALS: Ht 170.2 cm; Wt 75.0 kg
[2020-02-07] MEDS ORDERED: LEVETIRACETAM 100MG/ML ORAL SYR PO ONE (17:30)
[2020-02-07 17:31] LABS: BASOPHILS % 0.5 % (0.0-2.0); EOSINOPHILS % 0.1 % (0.0-5.0); HEMATOCRIT. 35.9 % (42.0-52.0); HEMOGLOBIN. 12.8 g/dL (14.0-18.0); LYMPHOCYTES % 16.9 % (20.0-50.0); MEAN CORPUSCULAR HEMOGLOBIN 33.8 pg (28.0-32.0); MEAN CORPUSCULAR VOLUME 95.2 fL (80.0-94.0); MEAN PLATELET VOLUME 7.6 fl (7.4-10.4); MONOCYTES % 7.8 % (2.0-8.0); NEUTROPHILS % 74.7 % (40.0-76.0); PLATELET 127 x1000/uL (130-400); RED BLOOD CELL COUNT 3.78 mill/uL (4.7-6.1); RED CELL DISTRIBUTION WIDTH 15.3 % (11.6-14.6)
[2020-02-07 17:35] LABS: CHLORIDE 103 mEq/L (98-107)
[2020-02-07 17:39] LABS: INR 1.1; PROTHROMBIN TIME 11.3 sec (9.6-11.0)
[2020-02-07] MEDS ORDERED: LORAZEPAM 2MG/ML CPJ IV ONE (17:45)
[2020-02-07 17:51] LABS: COLOR URINE YELLOW (YELLOW); KETONES URINE 1+ (NEGATIVE); LEUKOCYTE ESTERASE URINE NEGATIVE (NEGATIVE); NITRITE URINE NEGATIVE (NEGATIVE); OCCULT BLOOD URINE 2+ (NEGATIVE); PROTEIN URINE 3+ (NEGATIVE); SPECIFIC GRAVITY URINE 1.015 (1.005-1.030); UROBILINOGEN URINE 0.2 E.U./dL (0.2-1.0)
[2020-02-07 17:55] LABS: CLARITY URINE SL HAZY (CLEAR)
[2020-02-07 18:17] LABS: *AMPHETAMINES SCREEN URINE NEGATIVE (NEGATIVE); *BARBITURATES SCREEN URINE NEGATIVE (NEGATIVE); *BENZODIAZEPINES SCREEN URINE NEGATIVE (NEGATIVE); *COCAINE SCREEN URINE NEGATIVE (NEGATIVE); CANNABINOID URINE SCREEN NEGATIVE (NEGATIVE); METHADONE URINE SCREEN NEGATIVE (NEGATIVE); OPIATES URINE SCREEN NEGATIVE (NEGATIVE); PHENCYCLIDINE URINE SCREEN NEGATIVE (NEGATIVE)
[2020-02-07] MEDS ORDERED: MAGNESIUM 2 G PREMIX 50 ML IV ONE (19:30)
[2020-02-07 22:44] VITALS: BP 131/91
== END 2020-02-07 22:45 | disposition home or self-care (01) ==
LOC: ER 16:06
DX: G40.909 Epilepsy, unspecified, not intractable, without status epilepticus (principal); F10.20 Alcohol dependence, uncomplicated; J45.909 Unspecified asthma, uncomplicated; Z79.899 Other long term (current) drug therapy; Z87.19 Personal history of other diseases of the digestive system; Z87.09 Personal history of other diseases of the respiratory system; Y90.9 Presence of alcohol in blood, level not specified
CPT/HCPCS: 36415; 80053; 80305; 81003; 82962; 85025; 85610; 93005; 96365; 96375; 99285; J2060; J3475

== ENCOUNTER 2020-02-22 11:42 | Emergency (ER) | payer OTHER ==
[~2020-02-22] VITALS: Ht 175.3 cm; Wt 80.0 kg
[2020-02-22] MEDS ORDERED: FAMOTIDINE 20MG/2ML VIAL IV STA (12:16)
[2020-02-22] MEDS ORDERED: SODIUM CHLORIDE 0.9% 1,000 ML IV ONE (12:16)
[2020-02-22] MEDS ORDERED: ONDANSETRON HCL 4MG/2ML INJ IV STA (12:16)
[2020-02-22] MEDS ORDERED: LORAZEPAM 2MG/ML CPJ IV ONE (12:30)
[2020-02-22 12:52] LABS: BASOPHILS % 1.1 % (0.0-2.0); EOSINOPHILS % 0.1 % (0.0-5.0); HEMATOCRIT. 36.4 % (42.0-52.0); HEMOGLOBIN. 12.8 g/dL (14.0-18.0); LYMPHOCYTES % 22.6 % (20.0-50.0); MEAN CORPUSCULAR VOLUME 97.2 fL (80.0-94.0); MEAN PLATELET VOLUME 7.2 fl (7.4-10.4); NEUTROPHILS % 70.2 % (40.0-76.0); PLATELET 103 x1000/uL (130-400); RED BLOOD CELL COUNT 3.75 mill/uL (4.7-6.1); RED CELL DISTRIBUTION WIDTH 16.4 % (11.6-14.6)
[2020-02-22 12:55] LABS: CHLORIDE 103 mEq/L (98-107)
[2020-02-22 12:59] LABS: ETHANOL BLOOD 131 mg/dL
[2020-02-22 14:40] VITALS: BP 139/93
[2020-02-22 14:57] LABS: CLARITY URINE CLEAR (CLEAR); COLOR URINE YELLOW (YELLOW); KETONES URINE 4+ (NEGATIVE); LEUKOCYTE ESTERASE URINE NEGATIVE (NEGATIVE); NITRITE URINE NEGATIVE (NEGATIVE); OCCULT BLOOD URINE NEGATIVE (NEGATIVE); PROTEIN URINE 2+ (NEGATIVE); SPECIFIC GRAVITY URINE 1.027 (1.005-1.030); UROBILINOGEN URINE 0.2 E.U./dL (0.2-1.0)
[2020-02-22 15:26] LABS: *AMPHETAMINES SCREEN URINE NEGATIVE (NEGATIVE); *BARBITURATES SCREEN URINE NEGATIVE (NEGATIVE); *BENZODIAZEPINES SCREEN URINE NEGATIVE (NEGATIVE)
[2020-02-22 15:27] LABS: *COCAINE SCREEN URINE NEGATIVE (NEGATIVE)
[2020-02-22 15:28] LABS: METHADONE URINE SCREEN NEGATIVE (NEGATIVE)
[2020-02-22 15:29] LABS: CANNABINOID URINE SCREEN NEGATIVE (NEGATIVE); OPIATES URINE SCREEN NEGATIVE (NEGATIVE); PHENCYCLIDINE URINE SCREEN NEGATIVE (NEGATIVE)
== END 2020-02-22 15:43 | disposition home or self-care (01) ==
LOC: ER 11:42
DX: F10.239 Alcohol dependence with withdrawal, unspecified (principal); K70.10 Alcoholic hepatitis without ascites; G40.909 Epilepsy, unspecified, not intractable, without status epilepticus; Y90.6 Blood alcohol level of 120-199 mg/100 ml; R03.0 Elevated blood-pressure reading, without diagnosis of hypertension; D61.818 Other pancytopenia; D72.819 Decreased white blood cell count, unspecified; Z87.19 Personal history of other diseases of the digestive system
CPT/HCPCS: 36415; 70450; 80053; 80305; 80320; 81003; 83690; 85025; 96361; 96374; 96375; 99284; J2060; J2405; J3490; J7030; G0480

== ENCOUNTER 2020-03-03 10:43 | Emergency (ER) | payer OTHER ==
[~2020-03-03] VITALS: Ht 167.6 cm; Wt 73.0 kg
[2020-03-03] MEDS ORDERED: ONDANSETRON HCL 4MG/2ML INJ IV STA (11:19)
[2020-03-03] MEDS ORDERED: MORPHINE SULFATE 4 MG/ML CPJ (NOT FOR IM USE) IV STA (11:19)
[2020-03-03] MEDS ORDERED: SODIUM CHLORIDE 0.9% 1,000 ML IV ONE (11:19)
[2020-03-03 11:56] LABS: BASOPHILS % 0.4 % (0.0-2.0); EOSINOPHILS % 0.1 % (0.0-5.0); HEMOGLOBIN. 13.1 g/dL (14.0-18.0); LYMPHOCYTES % 24.3 % (20.0-50.0); MEAN CORPUSCULAR HEMOGLOBIN 34.2 pg (28.0-32.0); MEAN PLATELET VOLUME 7.1 fl (7.4-10.4); MONOCYTES % 8.7 % (2.0-8.0); NEUTROPHILS % 66.5 % (40.0-76.0); PLATELET 100 x1000/uL (130-400); RED BLOOD CELL COUNT 3.84 mill/uL (4.7-6.1)
[2020-03-03 12:14] LABS: CHLORIDE 103 mEq/L (98-107)
[2020-03-03 12:17] LABS: ETHANOL BLOOD 41 mg/dL
[2020-03-03 14:03] VITALS: BP 150/95
[2020-03-03 14:16] LABS: CLARITY URINE CLEAR (CLEAR); COLOR URINE DK YELLOW (YELLOW); KETONES URINE 1+ (NEGATIVE); LEUKOCYTE ESTERASE URINE NEGATIVE (NEGATIVE); NITRITE URINE NEGATIVE (NEGATIVE); OCCULT BLOOD URINE TRACE (NEGATIVE); PH URINE 6.5 (4.5-8.0); PROTEIN URINE 2+ (NEGATIVE); SPECIFIC GRAVITY URINE 1.015 (1.005-1.030)
[2020-03-03 14:17] LABS: *AMPHETAMINES SCREEN URINE NEGATIVE (NEGATIVE)
[2020-03-03 14:18] LABS: *BARBITURATES SCREEN URINE NEGATIVE (NEGATIVE); *BENZODIAZEPINES SCREEN URINE NEGATIVE (NEGATIVE); *COCAINE SCREEN URINE NEGATIVE (NEGATIVE); CANNABINOID URINE SCREEN NEGATIVE (NEGATIVE); METHADONE URINE SCREEN NEGATIVE (NEGATIVE); OPIATES URINE SCREEN NEGATIVE (NEGATIVE); PHENCYCLIDINE URINE SCREEN NEGATIVE (NEGATIVE)
== END 2020-03-03 15:26 | disposition home or self-care (01) ==
LOC: ER 10:43
DX: R10.13 Epigastric pain (principal); F10.229 Alcohol dependence with intoxication, unspecified; K70.30 Alcoholic cirrhosis of liver without ascites; Y90.2 Blood alcohol level of 40-59 mg/100 ml; R03.0 Elevated blood-pressure reading, without diagnosis of hypertension; G40.909 Epilepsy, unspecified, not intractable, without status epilepticus
CPT/HCPCS: 36415; 71045; 74176; 80053; 80305; 80320; 81003; 83690; 85025; 93005; 96361; 96374; 96375; 99285; J2270; J2405; J7030; G0480

== ENCOUNTER 2020-10-03 20:42 | Inpatient (IN) | payer OTHER ==
[~2020-10-03] VITALS: Ht 172.7 cm; Wt 72.6 kg
[2020-10-03] MEDS ORDERED: ONDANSETRON HCL 4MG/2ML INJ IV STA (23:42)
[2020-10-03] MEDS ORDERED: MORPHINE SULFATE 4 MG/ML CPJ (NOT FOR IM USE) IV STA (23:42)
[2020-10-03] MEDS ORDERED: FAMOTIDINE 20MG/2ML VIAL IV STA (23:42)
[2020-10-03] MEDS ORDERED: SODIUM CHLORIDE 0.9% 1,000 ML IV ONE (23:45)
[2020-10-04] LABS: BASOPHILS % 0.6 % (0.0-2.0); EOSINOPHILS % 0.3 % (0.0-5.0); HEMATOCRIT. 42.3 % (42.0-52.0); HEMOGLOBIN. 14.7 g/dL (14.0-18.0); MEAN CORPUSCULAR HEMOGLOBIN 31.3 pg (28.0-32.0); MEAN CORPUSCULAR VOLUME 90.4 fL (80.0-94.0); MEAN PLATELET VOLUME 7.2 fl (7.4-10.4); NEUTROPHILS % 76.1 % (40.0-76.0); PLATELET 312 x1000/uL (130-400); RED BLOOD CELL COUNT 4.68 mill/uL (4.7-6.1); RED CELL DISTRIBUTION WIDTH 16.8 % (11.6-14.6)
[2020-10-04 00:07] LABS: *AMPHETAMINES SCREEN URINE PRESUMTIVE POSITIVE (NEGATIVE); *BARBITURATES SCREEN URINE NEGATIVE (NEGATIVE); *BENZODIAZEPINES SCREEN URINE NEGATIVE (NEGATIVE); *COCAINE SCREEN URINE NEGATIVE (NEGATIVE)
[2020-10-04 00:08] LABS: CANNABINOID URINE SCREEN PRESUMTIVE POSITIVE (NEGATIVE); METHADONE URINE SCREEN NEGATIVE (NEGATIVE); OPIATES URINE SCREEN NEGATIVE (NEGATIVE); PHENCYCLIDINE URINE SCREEN NEGATIVE (NEGATIVE)
[2020-10-04 00:12] LABS: CHLORIDE 106 mEq/L (98-107)
[2020-10-04 00:17] LABS: ETHANOL BLOOD < 10 mg/dL
[2020-10-04] MEDS ORDERED: MAGNESIUM/ALUMINUM HYDROXIDE/SIMETHICONE 30ML UDC PO PRN (07:00)
[2020-10-04] MEDS ORDERED: ACETAMINOPHEN 325MG TABLET PO PRN (07:00)
[2020-10-04] MEDS ORDERED: LORAZEPAM 2MG/ML CPJ IV PRN (07:00)
[2020-10-04] MEDS ORDERED: TRAMADOL 50MG TABLET PO PRN (07:00)
[2020-10-04] MEDS ORDERED: CLONIDINE 0.1MG TABLET PO PRN (07:00)
[2020-10-04] MEDS ORDERED: DOCUSATE SODIUM 100MG CAPSULE PO PRN (07:00)
[2020-10-04] MEDS ORDERED: DIPHENHYDRAMINE 50MG/ML VIAL IV PRN (07:00)
[2020-10-04] MEDS ORDERED: ONDANSETRON HCL 4MG/2ML INJ IV PRN (07:00)
[2020-10-04] MEDS ORDERED: IPRATROPIUM/ALBUTEROL 0.5-3(2.5)MG/3ML NEB HHN PRN (07:00)
[2020-10-04] MEDS ORDERED: GUAIFENESIN 200MG/10ML SUGAR FREE UDC PO PRN (07:00)
[2020-10-04] MEDS ORDERED: HYDRALAZINE 20MG/ML VIAL IV PRN (07:00)
[2020-10-04] MEDS: DEXT 5%/0.45% NACL 1000ML 1,000 ML IV SCH ×2 (08:15→15:00)
[2020-10-04 09:30] VITALS: BP 141/99
[2020-10-04] MEDS: ENOXAPARIN 40MG/0.4ML SYR SUBCUT SCH (09:43)
[2020-10-04] MEDS: THIAMINE HCL 100MG TABLET PO SCH (09:43)
[2020-10-04] MEDS: LEVETIRACETAM 500MG TABLET PO SCH ×2 (09:43→18:08)
[2020-10-04 12:00] VITALS: BP 141/99
[2020-10-04] MEDS: SODIUM CHLORIDE 0.9% INJ 3ML FLUSH IVF SCH (14:17)
[2020-10-04 16:00] VITALS: BP 159/106
[2020-10-04] MEDS: MORPHINE SULFATE 2 MG/ML CPJ (NOT FOR IM USE) IV PRN (18:08)
[2020-10-04 20:00] VITALS: BP 136/82
[2020-10-05] VITALS: BP 164/99
[2020-10-05] MEDS: SODIUM CHLORIDE 0.9% INJ 3ML FLUSH IVF SCH ×2 (00:09→07:00)
[2020-10-05] MEDS: MORPHINE SULFATE 2 MG/ML CPJ (NOT FOR IM USE) IV PRN ×2 (00:10→09:58)
[2020-10-05 04:00] VITALS: BP 163/87
[2020-10-05] MEDS: DEXT 5%/0.45% NACL 1000ML 1,000 ML IV SCH ×2 (07:02→09:33)
[2020-10-05 07:31] LABS: BASOPHILS % 0.4 % (0.0-2.0); EOSINOPHILS % 1.9 % (0.0-5.0); HEMATOCRIT. 38.4 % (42.0-52.0); LYMPHOCYTES % 21.3 % (20.0-50.0); MEAN CORPUSCULAR HEMOGLOBIN 31.3 pg (28.0-32.0); MEAN CORPUSCULAR VOLUME 92.5 fL (80.0-94.0); MEAN PLATELET VOLUME 7.6 fl (7.4-10.4); MONOCYTES % 9.5 % (2.0-8.0); NEUTROPHILS % 66.9 % (40.0-76.0); PLATELET 148 x1000/uL (130-400); RED BLOOD CELL COUNT 4.15 mill/uL (4.7-6.1); RED CELL DISTRIBUTION WIDTH 16.5 % (11.6-14.6)
[2020-10-05 08:00] VITALS: BP 140/94
[2020-10-05 08:21] LABS: CHLORIDE 103 mEq/L (98-107)
[2020-10-05] MEDS: THIAMINE HCL 100MG TABLET PO SCH (09:28)
[2020-10-05] MEDS: LEVETIRACETAM 500MG TABLET PO SCH (09:28)
[2020-10-05] MEDS: ENOXAPARIN 40MG/0.4ML SYR SUBCUT SCH (09:29)
[2020-10-05 12:00] VITALS: BP 137/106
[2020-10-05 13:49] VITALS: BP 140/94
== END 2020-10-05 15:59 | disposition home or self-care (01) | DRG 440 ==
LOC: ER 20:42 → 6EST 10-04 02:45 → ENRESERV 10-04 08:18
PROVIDERS: ADMIT Internal Medicine; ATTEND Internal Medicine
DX: K85.90 Acute pancreatitis without necrosis or infection, unspecified (principal); F12.90 Cannabis use, unspecified, uncomplicated; F15.90 Other stimulant use, unspecified, uncomplicated; F41.1 Generalized anxiety disorder; F10.10 Alcohol abuse, uncomplicated; G40.909 Epilepsy, unspecified, not intractable, without status epilepticus; J45.909 Unspecified asthma, uncomplicated; Z91.19 Patient's noncompliance with other medical treatment and regimen
CPT/HCPCS: 36415; 76700; 80048; 80053; 80305; 80320; 83605; 85025; 93005; 99285; J1650; J2270; J2405; J3490; J7030; G0480

== ENCOUNTER 2020-12-28 18:27 | Emergency (ER) | payer OTHER ==
[~2020-12-28] VITALS: Ht 170.2 cm; Wt 74.0 kg
[2020-12-28] MEDS ORDERED: KETOROLAC 30MG/ML VIAL IV STA (18:53)
[2020-12-28] MEDS ORDERED: SODIUM CHLORIDE 0.9% 1,000 ML IV ONE (19:00)
[2020-12-28 19:11] LABS: BASOPHILS % 0.7 % (0.0-2.0); EOSINOPHILS % 0.2 % (0.0-5.0); HEMATOCRIT. 38.2 % (42.0-52.0); HEMOGLOBIN. 13.6 g/dL (14.0-18.0); LYMPHOCYTES % 20.4 % (20.0-50.0); MEAN CORPUSCULAR HEMOGLOBIN 32.1 pg (28.0-32.0); MEAN CORPUSCULAR VOLUME 90.3 fL (80.0-94.0); MEAN PLATELET VOLUME 6.7 fl (7.4-10.4); MONOCYTES % 4.6 % (2.0-8.0); NEUTROPHILS % 74.1 % (40.0-76.0); PLATELET 231 x1000/uL (130-400); RED BLOOD CELL COUNT 4.23 mill/uL (4.7-6.1); RED CELL DISTRIBUTION WIDTH 17.7 % (11.6-14.6)
[2020-12-28 19:17] LABS: CHLORIDE 102 mEq/L (98-107)
[2020-12-28 19:22] LABS: ETHANOL BLOOD 172 mg/dL
[2020-12-28] MEDS ORDERED: POTASSIUM CHLORIDE 20MEQ TABLET SR PO ONE (19:30)
[2020-12-28] MEDS ORDERED: MORPHINE SULFATE 4 MG/ML CPJ (NOT FOR IM USE) IV STA (22:21)
[2020-12-28] MEDS ORDERED: ONDANSETRON HCL 4MG/2ML INJ IV STA (22:21)
[2020-12-28] MEDS ORDERED: IBUP-2029 MT (22:23)
[2020-12-28 23:09] VITALS: BP 148/91
[2020-12-28] MEDS ORDERED: CHLORDIAZEPOXIDE 5 MG CAPSULE PO NR (23:45)
[2020-12-28] MEDS ORDERED: CHLORDIAZEPOXIDE 25MG CAPSULE PO ONE (23:45)
== END 2020-12-28 23:11 | disposition home or self-care (01) ==
LOC: EDBD → ER 18:27
DX: K85.90 Acute pancreatitis without necrosis or infection, unspecified (principal); T51.0X1A Toxic effect of ethanol, accidental (unintentional), initial encounter; F10.129 Alcohol abuse with intoxication, unspecified; Y90.6 Blood alcohol level of 120-199 mg/100 ml; Y92.89 Other specified places as the place of occurrence of the external cause; R00.0 Tachycardia, unspecified; G40.909 Epilepsy, unspecified, not intractable, without status epilepticus; F12.90 Cannabis use, unspecified, uncomplicated
CPT/HCPCS: 36415; 80053; 80320; 83690; 85025; 93005; 96374; 96375; 99284; J1885; J2270; J2405; J7030; G0480

== ENCOUNTER 2021-01-21 07:45 | Inpatient (IN) | payer OTHER ==
[~2021-01-21] VITALS: Ht 167.6 cm; Wt 70.5 kg
[~2021-01-21 07:45] MED LIST changes: +IBUP-2029 MT
[2021-01-21] MEDS ORDERED: ONDANSETRON HCL 4MG/2ML INJ IV STA (08:05)
[2021-01-21] MEDS ORDERED: MORPHINE SULFATE 4 MG/ML CPJ (NOT FOR IM USE) IV STA (08:05)
[2021-01-21] MEDS ORDERED: SODIUM CHLORIDE 0.9% 1,000 ML IV ONE (08:15)
[2021-01-21 08:48] LABS: BASOPHILS % 0.6 % (0.0-2.0); EOSINOPHILS % 0.3 % (0.0-5.0); HEMATOCRIT. 34.4 % (42.0-52.0); HEMOGLOBIN. 12.2 g/dL (14.0-18.0); LYMPHOCYTES % 19.5 % (20.0-50.0); MEAN CORPUSCULAR HEMOGLOBIN 32.8 pg (28.0-32.0); MEAN CORPUSCULAR VOLUME 92.4 fL (80.0-94.0); MEAN PLATELET VOLUME 7.2 fl (7.4-10.4); MONOCYTES % 7.8 % (2.0-8.0); NEUTROPHILS % 71.8 % (40.0-76.0); PLATELET 127 x1000/uL (130-400); RED BLOOD CELL COUNT 3.72 mill/uL (4.7-6.1); RED CELL DISTRIBUTION WIDTH 16.7 % (11.6-14.6)
[2021-01-21 08:52] LABS: CHLORIDE 105 mEq/L (98-107)
[2021-01-21 08:56] LABS: INR 1.1; PROTHROMBIN TIME 11.3 sec (9.6-11.0)
[2021-01-21] MEDS ORDERED: CHLORDIAZEPOXIDE 25MG CAPSULE PO ONE (09:15)
[2021-01-21] MEDS ORDERED: LEVETIRACETAM 500MG TABLET PO ONE (09:15)
[2021-01-21] MEDS: CHLORDIAZEPOXIDE 5 MG CAPSULE PO SCH ×2 (09:31→09:32)
[2021-01-21] MEDS ORDERED: LORAZEPAM 2MG/ML CPJ IV ONE (10:00)
[2021-01-21] MEDS ORDERED: CLONIDINE 0.1MG TABLET PO PRN (11:30)
[2021-01-21] MEDS ORDERED: DOCUSATE SODIUM 100MG CAPSULE PO PRN (11:30)
[2021-01-21] MEDS ORDERED: ACETAMINOPHEN 650MG/20.3ML UDC GT PRN ×2 (11:30)
[2021-01-21] MEDS ORDERED: GUAIFENESIN 200MG/10ML SUGAR FREE UDC PO PRN (11:30)
[2021-01-21] MEDS ORDERED: ONDANSETRON HCL 4MG/2ML INJ IV PRN (11:30)
[2021-01-21] MEDS ORDERED: ACETAMINOPHEN 325MG TABLET PO PRN ×2 (11:30)
[2021-01-21] MEDS ORDERED: MORPHINE SULFATE 2 MG/ML CPJ (NOT FOR IM USE) IV PRN (11:30)
[2021-01-21] MEDS ORDERED: ACETAMINOPHEN 650MG SUPP PR PRN ×2 (11:30)
[2021-01-21] MEDS ORDERED: MAGNESIUM/ALUMINUM HYDROXIDE/SIMETHICONE 30ML UDC PO PRN (11:30)
[2021-01-21] MEDS: DEXT 5%/0.45% NACL 1000ML 1,000 ML IV SCH ×2 (13:43→23:41)
[2021-01-21] MEDS: ENOXAPARIN 40MG/0.4ML SYR SUBCUT SCH (13:43)
[2021-01-21] MEDS: FAMOTIDINE 20MG/2ML VIAL IV SCH ×2 (13:44→23:10)
[2021-01-21 15:54] LABS: CLARITY URINE CLEAR (CLEAR); COLOR URINE YELLOW (YELLOW); KETONES URINE 1+ (NEGATIVE); LEUKOCYTE ESTERASE URINE NEGATIVE (NEGATIVE); NITRITE URINE NEGATIVE (NEGATIVE); OCCULT BLOOD URINE 1+ (NEGATIVE); PROTEIN URINE 2+ (NEGATIVE); SPECIFIC GRAVITY URINE 1.015 (1.005-1.030)
[2021-01-21] MEDS ORDERED: NALOXONE HCL 0.4MG/ML VIAL IV PRN (16:00)
[2021-01-21 16:21] LABS: *AMPHETAMINES SCREEN URINE NEGATIVE (NEGATIVE)
[2021-01-21 16:22] LABS: *BARBITURATES SCREEN URINE NEGATIVE (NEGATIVE); *BENZODIAZEPINES SCREEN URINE NEGATIVE (NEGATIVE); *COCAINE SCREEN URINE NEGATIVE (NEGATIVE); METHADONE URINE SCREEN NEGATIVE (NEGATIVE); OPIATES URINE SCREEN PRESUMTIVE POSITIVE (NEGATIVE); PHENCYCLIDINE URINE SCREEN NEGATIVE (NEGATIVE)
[2021-01-21 16:23] LABS: CANNABINOID URINE SCREEN NEGATIVE (NEGATIVE)
[2021-01-21] MEDS: LEVETIRACETAM 500MG TABLET PO SCH (23:10)
[2021-01-21] MEDS ORDERED: POTASSIUM CHLORIDE 20MEQ TABLET SR PO NR (23:30)
[2021-01-21] MEDS ORDERED: DIPHENHYDRAMINE 25MG CAPSULE PO PRN (23:30)
[2021-01-21] MEDS: ZOLPIDEM TARTRATE 5MG TABLET PO PRN (23:58)
[2021-01-22] VITALS: BP_SYST 125; BP_SYST 148; BP_DIAS 63; BP_DIAS 84
[2021-01-22 04:00] VITALS: BP 132/69
[2021-01-22 06:02] LABS: BASOPHILS % 0.7 % (0.0-2.0); EOSINOPHILS % 0.8 % (0.0-5.0); HEMATOCRIT. 34.6 % (42.0-52.0); LYMPHOCYTES % 21.9 % (20.0-50.0); MEAN CORPUSCULAR HEMOGLOBIN 32.8 pg (28.0-32.0); MEAN CORPUSCULAR VOLUME 94.9 fL (80.0-94.0); MEAN PLATELET VOLUME 7.5 fl (7.4-10.4); MONOCYTES % 7.9 % (2.0-8.0); NEUTROPHILS % 68.7 % (40.0-76.0); PLATELET 95 x1000/uL (130-400); RED BLOOD CELL COUNT 3.65 mill/uL (4.7-6.1); RED CELL DISTRIBUTION WIDTH 16.3 % (11.6-14.6)
[2021-01-22 06:14] LABS: CHLORIDE 103 mEq/L (98-107)
[2021-01-22 06:27] LABS: LDL CHOLESTEROL 134 mg/dL (5-100)
[2021-01-22 06:29] LABS: HDL CHOLESTEROL 113 mg/dL (40-59)
[2021-01-22 08:31] VITALS: BP 136/98
[2021-01-22] MEDS: FAMOTIDINE 20MG/2ML VIAL IV SCH (09:06)
[2021-01-22] MEDS: LEVETIRACETAM 500MG TABLET PO SCH ×2 (09:06→20:47)
[2021-01-22] MEDS: ENOXAPARIN 40MG/0.4ML SYR SUBCUT SCH (09:07)
[2021-01-22] MEDS: DEXT 5%/0.45% NACL 1000ML 1,000 ML IV SCH ×2 (09:07→18:00)
[2021-01-22 12:09] VITALS: BP 136/96
[2021-01-22] MEDS ORDERED: POTASSIUM CHLORIDE 20MEQ TABLET SR PO NR (13:00)
[2021-01-22 16:25] VITALS: BP 138/100
[2021-01-22 20:00] VITALS: BP 124/97
[2021-01-22] MEDS: FAMOTIDINE 20MG TABLET PO SCH (20:47)
[2021-01-22] MEDS: ZOLPIDEM TARTRATE 5MG TABLET PO PRN (23:46)
[2021-01-23] VITALS: BP 127/89
[2021-01-23 04:00] VITALS: BP 120/80
[2021-01-23] MEDS: DEXT 5%/0.45% NACL 1000ML 1,000 ML IV SCH (04:00)
[2021-01-23 06:31] LABS: BASOPHILS % 0.5 % (0.0-2.0); EOSINOPHILS % 1.3 % (0.0-5.0); LYMPHOCYTES % 34.9 % (20.0-50.0); MEAN CORPUSCULAR HEMOGLOBIN 32.8 pg (28.0-32.0); MEAN PLATELET VOLUME 8.2 fl (7.4-10.4); MONOCYTES % 8.8 % (2.0-8.0); NEUTROPHILS % 54.5 % (40.0-76.0); PLATELET 91 x1000/uL (130-400); RED BLOOD CELL COUNT 3.65 mill/uL (4.7-6.1); RED CELL DISTRIBUTION WIDTH 16.6 % (11.6-14.6)
[2021-01-23 06:44] LABS: CHLORIDE 104 mEq/L (98-107)
[2021-01-23] MEDS: ENOXAPARIN 40MG/0.4ML SYR SUBCUT SCH (09:00)
[2021-01-23] MEDS: LEVETIRACETAM 500MG TABLET PO SCH ×2 (09:09→22:15)
[2021-01-23] MEDS: FOLIC ACID 1MG TABLET PO SCH (09:09)
[2021-01-23] MEDS: THIAMINE HCL 100MG TABLET PO SCH (09:09)
[2021-01-23] MEDS: FAMOTIDINE 20MG TABLET PO SCH ×2 (09:09→22:16)
[2021-01-23 12:00] VITALS: BP 120/89
[2021-01-23 16:00] VITALS: BP 128/92
[2021-01-23 20:00] VITALS: BP 129/91
[2021-01-23] MEDS: ZOLPIDEM TARTRATE 5MG TABLET PO PRN (22:15)
[2021-01-24] MEDS: DEXT 5%/0.45% NACL 1000ML 1,000 ML IV SCH ×2 (00:29)
[2021-01-24 04:00] VITALS: BP 115/82
[2021-01-24 06:17] LABS: BASOPHILS % 0.2 % (0.0-2.0); EOSINOPHILS % 0.9 % (0.0-5.0); HEMATOCRIT. 35.7 % (42.0-52.0); HEMOGLOBIN. 12.4 g/dL (14.0-18.0); LYMPHOCYTES % 10.2 % (20.0-50.0); MEAN CORPUSCULAR HEMOGLOBIN 33.1 pg (28.0-32.0); MEAN CORPUSCULAR VOLUME 95.8 fL (80.0-94.0); MEAN PLATELET VOLUME 8.4 fl (7.4-10.4); MONOCYTES % 5.2 % (2.0-8.0); NEUTROPHILS % 83.5 % (40.0-76.0); PLATELET 100 x1000/uL (130-400); RED BLOOD CELL COUNT 3.73 mill/uL (4.7-6.1); RED CELL DISTRIBUTION WIDTH 16.5 % (11.6-14.6)
[2021-01-24 06:28] LABS: CHLORIDE 104 mEq/L (98-107)
[2021-01-24 08:00] VITALS: BP 108/74
[2021-01-24] MEDS ORDERED: SODIUM CHLORIDE 0.9% 1,000 ML IV SCH (08:00)
[2021-01-24] MEDS ORDERED: LOPERAMIDE HCL 2MG CAPSULE PO SCH (08:30)
[2021-01-24] MEDS: FOLIC ACID 1MG TABLET PO SCH (09:04)
[2021-01-24] MEDS: LEVETIRACETAM 500MG TABLET PO SCH (09:04)
[2021-01-24] MEDS: FAMOTIDINE 20MG TABLET PO SCH (09:04)
[2021-01-24] MEDS: THIAMINE HCL 100MG TABLET PO SCH (09:05)
[2021-01-24 09:47] LABS: AMYLASE 201 IU/L (25-115)
[2021-01-24 09:52] VITALS: BP 108/74
[2021-01-24 09:53] LABS: TOTAL IRON BINDING CAPACITY 302 ug/dL (250-450)
[2021-01-24 12:00] VITALS: BP 173/71
== END 2021-01-24 10:40 | disposition left against medical advice (07) | DRG 439 ==
LOC: ER 07:45 → 6WST 11:20 → ENRESERV 20:55 → 6EST 01-23 10:13
PROVIDERS: ADMIT Family Medicine; ATTEND Family Medicine
PROC: 4A10X4Z Monitoring of Central Nervous Electrical Activity, External Approach (ICD-10-PCS; principal; 2021-01-23)
DX: K85.90 Acute pancreatitis without necrosis or infection, unspecified (principal); F10.139 Alcohol abuse with withdrawal, unspecified; K70.10 Alcoholic hepatitis without ascites; K86.1 Other chronic pancreatitis; E78.5 Hyperlipidemia, unspecified; E87.6 Hypokalemia; Z53.29 Procedure and treatment not carried out because of patient's decision for other reasons; G40.909 Epilepsy, unspecified, not intractable, without status epilepticus; K76.0 Fatty (change of) liver, not elsewhere classified; Y90.9 Presence of alcohol in blood, level not specified; D53.9 Nutritional anemia, unspecified; F41.9 Anxiety disorder, unspecified; R73.9 Hyperglycemia, unspecified; Z79.51 Long term (current) use of inhaled steroids; Z79.899 Other long term (current) drug therapy; Z71.41 Alcohol abuse counseling and surveillance of alcoholic
CPT/HCPCS: 36415; 76700; 80048; 80053; 80061; 80076; 80305; 81003; 82150; 82607; 82728; 82746; 83540; 83550; 83735; 84075; 84450; 84460; 85025; 93005; 95816; 99285; J1650; J2060; J2270; J2405; J3490; J7030; Q0163

== ENCOUNTER 2021-08-19 07:44 | Emergency (ER) | payer OTHER ==
[~2021-08-19] VITALS: Ht 172.7 cm; Wt 82.0 kg
[2021-08-19] MEDS: KETOROLAC 15MG/ML VIAL IV ONE (09:40)
[2021-08-19] MEDS: ONDANSETRON HCL 4MG/2ML INJ IV ONE (09:40)
[2021-08-19 09:50] LABS: BASOPHILS % 0.5 % (0.0-2.0); EOSINOPHILS % 0.1 % (0.0-5.0); HEMATOCRIT. 35.8 % (42.0-52.0); HEMOGLOBIN. 12.7 g/dL (14.0-18.0); LYMPHOCYTES % 25.4 % (20.0-50.0); MEAN CORPUSCULAR HEMOGLOBIN 32.7 pg (28.0-32.0); MEAN CORPUSCULAR VOLUME 91.9 fL (80.0-94.0); MEAN PLATELET VOLUME 6.9 fl (7.4-10.4); MONOCYTES % 5.5 % (2.0-8.0); NEUTROPHILS % 68.5 % (40.0-76.0); PLATELET 155 x1000/uL (130-400); RED BLOOD CELL COUNT 3.89 mill/uL (4.7-6.1); RED CELL DISTRIBUTION WIDTH 17.4 % (11.6-14.6)
[2021-08-19 09:56] LABS: CHLORIDE 110 mEq/L (98-107)
[2021-08-19] MEDS: SODIUM CHLORIDE 0.9% 1,000 ML IV ONE (10:02)
[2021-08-19 14:15] VITALS: BP 135/71
== END 2021-08-19 14:36 | disposition home or self-care (01) ==
LOC: ER 07:44
DX: K86.1 Other chronic pancreatitis (principal); R06.02 Shortness of breath; F12.10 Cannabis abuse, uncomplicated; Z86.59 Personal history of other mental and behavioral disorders; Z98.890 Other specified postprocedural states
CPT/HCPCS: 36415; 71045; 74176; 80053; 83690; 85025; 96361; 96374; 96375; 99285; J1885; J2405; J7030

== ENCOUNTER 2021-10-23 04:17 | Emergency (ER) | payer OTHER ==
[~2021-10-23] VITALS: Ht 167.6 cm; Wt 70.0 kg
[2021-10-23] MEDS ORDERED: LEVETIRACETAM 500MG PREMIX 100 ML IV ONE (04:30)
[2021-10-23] MEDS ORDERED: KEPP500 MT (04:42)
[2021-10-23 05:40] LABS: BASOPHILS % 0.2 % (0.0-2.0); EOSINOPHILS % 0.1 % (0.0-5.0); HEMATOCRIT. 37.3 % (42.0-52.0); LYMPHOCYTES % 12.9 % (20.0-50.0); MEAN CORPUSCULAR HEMOGLOBIN 33.4 pg (28.0-32.0); MEAN CORPUSCULAR VOLUME 95.8 fL (80.0-94.0); NEUTROPHILS % 81.8 % (40.0-76.0); PLATELET 119 x1000/uL (130-400); RED BLOOD CELL COUNT 3.89 mill/uL (4.7-6.1); RED CELL DISTRIBUTION WIDTH 19.2 % (11.6-14.6)
[2021-10-23 05:49] LABS: CHLORIDE 97 mEq/L (98-107)
[2021-10-23 05:55] LABS: ETHANOL BLOOD < 10 mg/dL
[2021-10-23 06:25] VITALS: BP 115/75
[2021-10-23 06:43] LABS: *AMPHETAMINES SCREEN URINE NEGATIVE (NEGATIVE); *BARBITURATES SCREEN URINE NEGATIVE (NEGATIVE); *BENZODIAZEPINES SCREEN URINE NEGATIVE (NEGATIVE); *COCAINE SCREEN URINE NEGATIVE (NEGATIVE); CANNABINOID URINE SCREEN NEGATIVE (NEGATIVE); METHADONE URINE SCREEN NEGATIVE (NEGATIVE); OPIATES URINE SCREEN NEGATIVE (NEGATIVE); PHENCYCLIDINE URINE SCREEN NEGATIVE (NEGATIVE)
== END 2021-10-23 06:36 | disposition home or self-care (01) ==
LOC: ER 04:17
DX: G40.909 Epilepsy, unspecified, not intractable, without status epilepticus (principal); Z91.14 Patient's other noncompliance with medication regimen
CPT/HCPCS: 36415; 80053; 80305; 80320; 83605; 85025; 96365; 99284; J1953; G0480

== ENCOUNTER 2021-11-07 17:39 | Emergency (ER) | payer OTHER ==
[~2021-11-07] VITALS: Ht 167.6 cm; Wt 71.0 kg
[2021-11-07 17:53] VITALS: BP 134/90
[2021-11-07] MEDS ORDERED: SODIUM CHLORIDE 0.9% 1,000 ML IV ONE (18:15)
== END 2021-11-07 20:06 | disposition left against medical advice (07) ==
LOC: ER 17:39
DX: F10.129 Alcohol abuse with intoxication, unspecified (principal); J45.909 Unspecified asthma, uncomplicated; Z86.59 Personal history of other mental and behavioral disorders; Y90.9 Presence of alcohol in blood, level not specified
CPT/HCPCS: 99283; J7030

== ENCOUNTER 2021-11-10 15:24 | Emergency (ER) | payer OTHER ==
[~2021-11-10] VITALS: Ht 172.7 cm; Wt 91.0 kg
[2021-11-10] MEDS ORDERED: TETANUS, DIPHTHERIA, PERTUSSIS VAC/PF 0.5ML (>10YR OLD) IM ONE ×3 (16:15→22:00)
[2021-11-10 16:40] LABS: BASOPHILS % 0.2 % (0.0-2.0); HEMATOCRIT. 37.1 % (42.0-52.0); HEMOGLOBIN. 12.8 g/dL (14.0-18.0); LYMPHOCYTES % 8.5 % (20.0-50.0); MEAN CORPUSCULAR HEMOGLOBIN 33.8 pg (28.0-32.0); MEAN CORPUSCULAR VOLUME 97.7 fL (80.0-94.0); MEAN PLATELET VOLUME 7.3 fl (7.4-10.4); MONOCYTES % 6.3 % (2.0-8.0); PLATELET 121 x1000/uL (130-400); RED CELL DISTRIBUTION WIDTH 18.5 % (11.6-14.6)
[2021-11-10 16:47] LABS: CHLORIDE 101 mEq/L (98-107)
[2021-11-10 16:56] LABS: ETHANOL BLOOD < 10 mg/dL
[2021-11-10] MEDS ORDERED: LEVETIRACETAM 500MG TABLET PO ONE (17:00)
[2021-11-10] MEDS ORDERED: POTASSIUM CHLORIDE 20MEQ TABLET SR PO NR (17:24)
[2021-11-10] MEDS ORDERED: BACITRACIN ZINC OINT UDPKT TOP ONE (18:00)
[2021-11-10] MEDS ORDERED: HYDROCODONE/ACETAMINOPHEN 5/325MG TABLET PO ONE (18:00)
[2021-11-10] MEDS ORDERED: LEVETIRACETAM 500MG TABLET PO NR (18:15)
[2021-11-10] MEDS ORDERED: MORPHINE SULFATE 4 MG/ML CPJ (NOT FOR IM USE) IV ONE (19:15)
[2021-11-10] MEDS ORDERED: ONDANSETRON HCL 4MG/2ML INJ IV ONE (19:15)
[2021-11-10] MEDS ORDERED: LIDOCAINE HCL 1% 20ML VIAL (Pyxis) INJ INFIL ONE (19:30)
[2021-11-10] MEDS ORDERED: AMOX-424 MT (20:10)
[2021-11-10] MEDS ORDERED: HYDR-4001 MT (20:10)
[2021-11-10] MEDS ORDERED: GUAI600T26 MT (20:10)
[2021-11-10] MEDS ORDERED: KEPP500 MT (20:11)
[2021-11-10] MEDS ORDERED: AMOXICILLIN/POTASSIUM CLAVULANATE 875/125MG TAB PO ONE (20:15)
[2021-11-10] MEDS ORDERED: AMOXICILLIN/POTASSIUM CLAVULANATE 875/125MG TAB PO SCH (21:30)
[2021-11-10 22:00] VITALS: BP 152/97
== END 2021-11-10 22:25 | disposition home or self-care (01) ==
LOC: ER 15:24
DX: S02.2XXA Fracture of nasal bones, initial encounter for closed fracture (principal); R56.9 Unspecified convulsions; W18.39XA Other fall on same level, initial encounter; Y93.89 Activity, other specified; Y92.89 Other specified places as the place of occurrence of the external cause; Y99.8 Other external cause status; E87.6 Hypokalemia; D64.9 Anemia, unspecified; E87.2 Acidosis; J45.909 Unspecified asthma, uncomplicated; Z79.899 Other long term (current) drug therapy
CPT/HCPCS: 12013; 36415; 70450; 70486; 72125; 80053; 80320; 83605; 85025; 90471; 90715; 93005; 96374; 96375; 99285; J2270; J2405; G0480

== ENCOUNTER 2021-11-28 16:46 | Emergency (ER) | payer OTHER ==
[~2021-11-28] VITALS: Ht 172.7 cm; Wt 75.0 kg
[~2021-11-28 16:46] MED LIST changes: +AMOX-424 MT; +GUAI600T26 MT; +HYDR-4001 MT
[2021-11-28] MEDS ORDERED: LEVETIRACETAM 1000MG PREMIX 100 ML IV ONE (17:45)
[2021-11-28] MEDS ORDERED: LEVETIRACETAM 500MG PREMIX 100 ML IV ONE (17:45)
[2021-11-28] MEDS ORDERED: SODIUM CHLORIDE 0.9% 1,000 ML IV ONE (17:45)
[2021-11-28 18:56] LABS: BASOPHILS % 0.3 % (0.0-2.0); EOSINOPHILS % 0.6 % (0.0-5.0); HEMATOCRIT. 34.7 % (42.0-52.0); HEMOGLOBIN. 11.8 g/dL (14.0-18.0); LYMPHOCYTES % 12.7 % (20.0-50.0); MEAN CORPUSCULAR HEMOGLOBIN 33.1 pg (28.0-32.0); MEAN CORPUSCULAR VOLUME 97.1 fL (80.0-94.0); MEAN PLATELET VOLUME 8.7 fl (7.4-10.4); MONOCYTES % 5.6 % (2.0-8.0); NEUTROPHILS % 80.8 % (40.0-76.0); PLATELET 99 x1000/uL (130-400); RED BLOOD CELL COUNT 3.57 mill/uL (4.7-6.1); RED CELL DISTRIBUTION WIDTH 17.8 % (11.6-14.6)
[2021-11-28 19:01] LABS: CHLORIDE 102 mEq/L (98-107)
[2021-11-28 19:08] LABS: ETHANOL BLOOD < 10 mg/dL
[2021-11-28 19:15] LABS: CLARITY URINE CLEAR (CLEAR); COLOR URINE YELLOW (YELLOW); KETONES URINE TRACE (NEGATIVE); LEUKOCYTE ESTERASE URINE NEGATIVE (NEGATIVE); NITRITE URINE NEGATIVE (NEGATIVE); OCCULT BLOOD URINE TRACE (NEGATIVE); PROTEIN URINE 2+ (NEGATIVE); SPECIFIC GRAVITY URINE 1.012 (1.005-1.030)
[2021-11-28 19:58] LABS: *AMPHETAMINES SCREEN URINE NEGATIVE (NEGATIVE); *BARBITURATES SCREEN URINE NEGATIVE (NEGATIVE); *BENZODIAZEPINES SCREEN URINE NEGATIVE (NEGATIVE); *COCAINE SCREEN URINE NEGATIVE (NEGATIVE); CANNABINOID URINE SCREEN NEGATIVE (NEGATIVE); METHADONE URINE SCREEN NEGATIVE (NEGATIVE); OPIATES URINE SCREEN NEGATIVE (NEGATIVE); PHENCYCLIDINE URINE SCREEN NEGATIVE (NEGATIVE)
[2021-11-28] MEDS ORDERED: KEPP500 MT (21:07)
[2021-11-28] MEDS ORDERED: KETOROLAC 15MG/ML VIAL IV ONE (21:15)
[2021-11-28 21:17] VITALS: BP 125/84
== END 2021-11-28 21:29 | disposition home or self-care (01) ==
LOC: ER 16:46
DX: G40.909 Epilepsy, unspecified, not intractable, without status epilepticus (principal); J45.909 Unspecified asthma, uncomplicated; Z91.14 Patient's other noncompliance with medication regimen; Z79.899 Other long term (current) drug therapy; Z98.890 Other specified postprocedural states
CPT/HCPCS: 36415; 70450; 80053; 80305; 80320; 81003; 83605; 83690; 85025; 96365; 96375; 99291; J1885; J1953; J7030; G0480

== ENCOUNTER 2021-12-15 09:01 | Emergency (ER) | payer OTHER ==
[~2021-12-15] VITALS: Ht 167.6 cm; Wt 75.0 kg
[2021-12-15] MEDS ORDERED: MORPHINE SULFATE 4 MG/ML CPJ (NOT FOR IM USE) IV STA (09:16)
[2021-12-15] MEDS ORDERED: ONDANSETRON HCL 4MG/2ML INJ IV STA (09:16)
[2021-12-15] MEDS ORDERED: SODIUM CHLORIDE 0.9% 1,000 ML IV ONE (09:30)
[2021-12-15 09:46] LABS: BASOPHILS % 1.2 % (0.0-2.0); EOSINOPHILS % 0.4 % (0.0-5.0); HEMATOCRIT. 42.4 % (42.0-52.0); HEMOGLOBIN. 14.6 g/dL (14.0-18.0); MEAN CORPUSCULAR HEMOGLOBIN 32.2 pg (28.0-32.0); MEAN CORPUSCULAR VOLUME 93.5 fL (80.0-94.0); MEAN PLATELET VOLUME 8.2 fl (7.4-10.4); NEUTROPHILS % 69.4 % (40.0-76.0); PLATELET 227 x1000/uL (130-400); RED BLOOD CELL COUNT 4.53 mill/uL (4.7-6.1); RED CELL DISTRIBUTION WIDTH 17.9 % (11.6-14.6)
[2021-12-15 09:50] LABS: CHLORIDE 101 mEq/L (98-107)
[2021-12-15 09:57] LABS: ETHANOL BLOOD < 10 mg/dL
[2021-12-15 09:59] LABS: INR 1.2; PROTHROMBIN TIME 12.4 sec (9.6-11.0)
[2021-12-15 12:14] LABS: CLARITY URINE CLEAR (CLEAR); COLOR URINE ORANGE (YELLOW); KETONES URINE TRACE (NEGATIVE); LEUKOCYTE ESTERASE URINE NEGATIVE (NEGATIVE); NITRITE URINE NEGATIVE (NEGATIVE); OCCULT BLOOD URINE TRACE (NEGATIVE); PROTEIN URINE 3+ (NEGATIVE); SPECIFIC GRAVITY URINE 1.021 (1.005-1.030)
[2021-12-15 12:45] LABS: *AMPHETAMINES SCREEN URINE NEGATIVE (NEGATIVE); *BARBITURATES SCREEN URINE NEGATIVE (NEGATIVE); *BENZODIAZEPINES SCREEN URINE NEGATIVE (NEGATIVE); *COCAINE SCREEN URINE NEGATIVE (NEGATIVE); CANNABINOID URINE SCREEN NEGATIVE (NEGATIVE); METHADONE URINE SCREEN NEGATIVE (NEGATIVE); OPIATES URINE SCREEN PRESUMTIVE POSITIVE (NEGATIVE); PHENCYCLIDINE URINE SCREEN NEGATIVE (NEGATIVE)
[2021-12-15] MEDS ORDERED: OMEP20CA14 MT (12:57)
[2021-12-15] MEDS ORDERED: DICY20TA2 MT (12:57)
[2021-12-15] MEDS ORDERED: ONDA4TAB11 PO (12:57)
[2021-12-15 13:21] VITALS: BP 135/96
== END 2021-12-15 13:35 | disposition home or self-care (01) ==
LOC: ER 09:01
DX: R10.13 Epigastric pain (principal); J45.909 Unspecified asthma, uncomplicated; Z79.899 Other long term (current) drug therapy; Z98.890 Other specified postprocedural states; Z86.59 Personal history of other mental and behavioral disorders
CPT/HCPCS: 36415; 71045; 80053; 80305; 80320; 81003; 83690; 85025; 85610; 93005; 96361; 96374; 96375; 99285; J2270; J2405; J7030; G0480

== ENCOUNTER 2022-07-28 10:24 | Emergency (ER) | payer OTHER ==
[~2022-07-28] VITALS: Ht 175.3 cm; Wt 73.0 kg
[~2022-07-28 10:24] MED LIST changes: +DICY20TA2 MT; +OMEP20CA14 MT; +ONDA4TAB11 PO
[2022-07-28] MEDS ORDERED: ONDANSETRON HCL 4MG/2ML INJ IV STA (10:29)
[2022-07-28] MEDS ORDERED: LEVETIRACETAM 500MG TABLET PO ONE (10:30)
[2022-07-28] MEDS ORDERED: SODIUM CHLORIDE 0.9% 1,000 ML IV ONE (10:30)
[2022-07-28] MEDS ORDERED: LORAZEPAM 2MG/ML CPJ IV ONE (10:30)
[2022-07-28 10:56] LABS: BASOPHILS % 0.7 % (0.0-2.0); HEMATOCRIT. 39.9 % (42.0-52.0); HEMOGLOBIN. 14.2 g/dL (14.0-18.0); LYMPHOCYTES % 26.1 % (20.0-50.0); MEAN CORPUSCULAR HEMOGLOBIN 34.3 pg (28.0-32.0); MEAN CORPUSCULAR VOLUME 96.5 fL (80.0-94.0); MEAN PLATELET VOLUME 7.6 fl (7.4-10.4); MONOCYTES % 7.2 % (2.0-8.0); PLATELET 152 x1000/uL (130-400); RED BLOOD CELL COUNT 4.14 mill/uL (4.7-6.1); RED CELL DISTRIBUTION WIDTH 14.3 % (11.6-14.6)
[2022-07-28 10:59] LABS: CHLORIDE 105 mEq/L (98-107)
[2022-07-28 11:06] LABS: ETHANOL BLOOD 71 mg/dL
[2022-07-28] MEDS ORDERED: MAGNESIUM/ALUMINUM HYDROXIDE/SIMETHICONE 30ML UDC PO ONE (11:15)
[2022-07-28] MEDS ORDERED: LEVETIRACETAM 500MG PREMIX 100 ML IV ONE (11:15)
[2022-07-28] MEDS ORDERED: ONDANSETRON HCL 4MG/2ML INJ IV ONE (11:15)
[2022-07-28 11:48] LABS: CLARITY URINE CLEAR (CLEAR); COLOR URINE DARK YELLOW (YELLOW); KETONES URINE TRACE (NEGATIVE); LEUKOCYTE ESTERASE URINE NEGATIVE (NEGATIVE); NITRITE URINE NEGATIVE (NEGATIVE); OCCULT BLOOD URINE 1+ (NEGATIVE); PROTEIN URINE 4+ (NEGATIVE); SPECIFIC GRAVITY URINE 1.019 (1.005-1.030)
[2022-07-28 12:10] LABS: *AMPHETAMINES SCREEN URINE PRESUMTIVE POSITIVE (NEGATIVE); *BARBITURATES SCREEN URINE NEGATIVE (NEGATIVE); *BENZODIAZEPINES SCREEN URINE NEGATIVE (NEGATIVE); *COCAINE SCREEN URINE NEGATIVE (NEGATIVE); CANNABINOID URINE SCREEN NEGATIVE (NEGATIVE); METHADONE URINE SCREEN NEGATIVE (NEGATIVE); OPIATES URINE SCREEN NEGATIVE (NEGATIVE); PHENCYCLIDINE URINE SCREEN NEGATIVE (NEGATIVE)
[2022-07-28] MEDS ORDERED: KEPP500 MT (12:28)
[2022-07-28] MEDS ORDERED: ONDA4TAB50 MT (12:28)
[2022-07-28 12:40] VITALS: BP 128/83
== END 2022-07-28 12:53 | disposition home or self-care (01) ==
LOC: ER 10:36
DX: G40.909 Epilepsy, unspecified, not intractable, without status epilepticus (principal); I10 Essential (primary) hypertension; F19.90 Other psychoactive substance use, unspecified, uncomplicated; F10.20 Alcohol dependence, uncomplicated; Y90.3 Blood alcohol level of 60-79 mg/100 ml
CPT/HCPCS: 36415; 80053; 80305; 80320; 81003; 82962; 85025; 96365; 96375; 99284; J1953; J2060; J2405; J7030; G0480

== ENCOUNTER 2022-08-22 13:13 | Emergency (ER) | payer OTHER ==
[~2022-08-22] VITALS: Ht 182.9 cm; Wt 85.0 kg
[~2022-08-22 13:13] MED LIST changes: +ONDA4TAB50 MT
[2022-08-22 13:19] VITALS: BP 126/81
[2022-08-22] MEDS ORDERED: LEVETIRACETAM 500MG TABLET PO ONE (16:00)
[2022-08-22 16:10] LABS: BASOPHILS % 0.5 % (0.0-2.0); EOSINOPHILS % 0.1 % (0.0-5.0); HEMATOCRIT. 39.1 % (42.0-52.0); HEMOGLOBIN. 13.6 g/dL (14.0-18.0); LYMPHOCYTES % 19.3 % (20.0-50.0); MEAN CORPUSCULAR HEMOGLOBIN 33.6 pg (28.0-32.0); MEAN CORPUSCULAR VOLUME 96.4 fL (80.0-94.0); MEAN PLATELET VOLUME 7.9 fl (7.4-10.4); MONOCYTES % 5.9 % (2.0-8.0); NEUTROPHILS % 74.2 % (40.0-76.0); PLATELET 93 x1000/uL (130-400); RED BLOOD CELL COUNT 4.06 mill/uL (4.7-6.1); RED CELL DISTRIBUTION WIDTH 14.6 % (11.6-14.6)
[2022-08-22 16:19] LABS: CHLORIDE 101 mEq/L (98-107)
[2022-08-22 16:27] LABS: ETHANOL BLOOD < 10 mg/dL
[2022-08-22] MEDS ORDERED: LORAZEPAM 1MG TABLET PO ONE (16:45)
== END 2022-08-22 22:24 | disposition left against medical advice (07) ==
LOC: ER 13:13
DX: R10.13 Epigastric pain (principal); F10.10 Alcohol abuse, uncomplicated; G40.909 Epilepsy, unspecified, not intractable, without status epilepticus; E87.6 Hypokalemia; Y90.0 Blood alcohol level of less than 20 mg/100 ml; R79.89 Other specified abnormal findings of blood chemistry; D64.9 Anemia, unspecified; Z91.14 Patient's other noncompliance with medication regimen
CPT/HCPCS: 36415; 80053; 80307; 80320; 80329; 85025; 99283; G0480

== ENCOUNTER 2023-06-14 17:53 | Emergency (ER) | payer OTHER ==
[~2023-06-14] VITALS: Ht 170.2 cm; Wt 68.0 kg
[~2023-06-14 17:53] MED LIST changes: +FOLI-43 PO; +KETO10TA2 MT; +LEVE1000 MT; +MUPI22OI2 TOP; +P20 PO; +THIA100T72 PO
[2023-06-14 17:58] VITALS: BP 150/108; PULSE 93; RESP 16; TEMP 97.8; O2SAT 98
[2023-06-14] MEDS ORDERED: SODIUM CHLORIDE 0.9% 1,000 ML IV ONE (18:15)
[2023-06-14] MEDS ORDERED: LEVETIRACETAM 1000MG PREMIX 100 ML IV ONE (18:15)
[2023-06-14 19:59] LABS: ALANINE AMINOTRANSFERASE 108 IU/L (10-49); ALBUMIN 4.1 g/dL (3.2-4.8); ASPARTATE AMINOTRANSFERASE 455 IU/L (<34); BILIRUBIN TOTAL 1.6 mg/dL (0.1-1.0); CARBON DIOXIDE 29 mEq/L (21-32); CHLORIDE 100 mEq/L (98-107); CREATININE 0.7 mg/dL (0.6-1.3); GLUCOSE 100 mg/dL (70-105); POTASSIUM 3.4 mEq/L (3.5-5.1); PROTEIN TOTAL 7.4 g/dL (6.0-8.3); SODIUM 138 mEq/L (136-145); UREA NITROGEN BLOOD 6 mg/dL (9-23)
[2023-06-14] MEDS ORDERED: LORAZEPAM 2MG/ML CPJ IV ONE (20:00)
[2023-06-14 20:01] LABS: ETHANOL BLOOD < 10 mg/dL (<10)
[2023-06-14 20:12] LABS: BASOPHILS % 0.7 % (0.0-2.0); EOSINOPHILS % 0.1 % (0.0-5.0); HEMATOCRIT. 37.1 % (42.0-52.0); HEMOGLOBIN. 12.6 g/dL (14.0-18.0); LYMPHOCYTES % 25.2 % (20.0-50.0); MEAN CORPUSCULAR HEMOGLOBIN 32.7 pg (28.0-32.0); MEAN CORPUSCULAR HGB CONC 33.8 g/dL (31.0-37.0); MEAN CORPUSCULAR VOLUME 96.5 fL (80.0-94.0); MEAN PLATELET VOLUME 8.1 fl (7.4-10.4); MONOCYTES % 9.3 % (2.0-8.0); NEUTROPHILS % 64.7 % (40.0-76.0); PLATELET 82 x1000/uL (130-400); RED BLOOD CELL COUNT 3.85 mill/uL (4.7-6.1); WHITE BLOOD COUNT 3.6 x1000/uL (4.5-11.0)
== END 2023-06-14 20:57 | disposition home or self-care (01) ==
LOC: ER 17:53
DX: G40.909 Epilepsy, unspecified, not intractable, without status epilepticus (principal); E87.6 Hypokalemia; R74.01 Elevation of levels of liver transaminase levels; Z79.899 Other long term (current) drug therapy
CPT/HCPCS: 80053; 80320; 85025; 36415; 96365; 99284; J1953; J7030; G0480

== ENCOUNTER 2023-07-02 09:41 | Emergency (ER) | payer OTHER ==
[~2023-07-02] VITALS: Ht 172.7 cm; Wt 73.0 kg
[2023-07-02 09:52] VITALS: BP 122/85; PULSE 90; RESP 20; TEMP 98.6; O2SAT 99
== END 2023-07-02 10:28 | disposition left against medical advice (07) ==
LOC: ER 09:41
DX: F10.129 Alcohol abuse with intoxication, unspecified (principal); S00.93XA Contusion of unspecified part of head, initial encounter; Z79.899 Other long term (current) drug therapy; Z86.59 Personal history of other mental and behavioral disorders; Y90.9 Presence of alcohol in blood, level not specified; Y04.0XXA Assault by unarmed brawl or fight, initial encounter; Y93.89 Activity, other specified; Y92.89 Other specified places as the place of occurrence of the external cause; Y99.8 Other external cause status
CPT/HCPCS: 99283

== ENCOUNTER 2023-07-14 09:12 | Emergency (ER) | payer OTHER ==
[~2023-07-14] VITALS: Ht 170.2 cm; Wt 70.0 kg
[2023-07-14 09:16] VITALS: BP 114/82; PULSE 92; RESP 16; TEMP 98.8; O2SAT 96
[2023-07-14] MEDS ORDERED: LIDOCAINE HCL 1% 20ML VIAL (Pyxis) INJ INFIL ONE (09:45)
[2023-07-14] MEDS ORDERED: SODIUM CHLORIDE 0.9% 1,000 ML IV ONE (10:00)
[2023-07-15] MEDS ORDERED: KEPP500 MT (16:55)
[2023-07-15] MEDS ORDERED: POTA-205 MT (17:04)
== END 2023-07-14 10:29 | disposition home or self-care (01) ==
LOC: ER 09:26
DX: L02.211 Cutaneous abscess of abdominal wall (principal); E11.9 Type 2 diabetes mellitus without complications
CPT/HCPCS: 99283; 96360; J3490; J7030

== ENCOUNTER 2023-07-15 13:49 | Emergency (ER) | payer OTHER ==
[~2023-07-15] VITALS: Ht 177.8 cm; Wt 73.0 kg
[2023-07-15 13:52] VITALS: O2SAT 100
[2023-07-15] MEDS ORDERED: LEVETIRACETAM 500MG TABLET PO ONE (14:30)
[2023-07-15] MEDS ORDERED: CHLORDIAZEPOXIDE 25MG CAPSULE PO ONE (14:30)
[2023-07-15 15:42] LABS: HEMATOCRIT. 31.7 % (42.0-52.0); HEMOGLOBIN. 10.7 g/dL (14.0-18.0); MEAN CORPUSCULAR HEMOGLOBIN 32.8 pg (28.0-32.0); MEAN CORPUSCULAR HGB CONC 33.8 g/dL (31.0-37.0); MEAN PLATELET VOLUME 7.4 fl (7.4-10.4); PLATELET 119 x1000/uL (130-400); RED BLOOD CELL COUNT 3.27 mill/uL (4.7-6.1); RED CELL DISTRIBUTION WIDTH 15.3 % (11.6-14.6); WHITE BLOOD COUNT 3.3 x1000/uL (4.5-11.0)
[2023-07-15 15:44] LABS: DIFFERENTIAL COMMENT 1
[2023-07-15 15:57] LABS: ALANINE AMINOTRANSFERASE 126 IU/L (10-49); ALBUMIN 3.8 g/dL (3.2-4.8); ASPARTATE AMINOTRANSFERASE 288 IU/L (<34); CARBON DIOXIDE 25 mEq/L (21-32); CHLORIDE 101 mEq/L (98-107); CREATININE 0.7 mg/dL (0.6-1.3); GLUCOSE 89 mg/dL (70-105); PROTEIN TOTAL 6.8 g/dL (6.0-8.3); SODIUM 138 mEq/L (136-145); UREA NITROGEN BLOOD 11 mg/dL (9-23)
[2023-07-15 16:06] LABS: ETHANOL BLOOD < 10 mg/dL (<10); PLATELET ESTIMATE DECREASED
[2023-07-15 16:08] LABS: POTASSIUM 2.7 mEq/L (3.5-5.1)
[2023-07-15] MEDS ORDERED: POTASSIUM CHLORIDE 20MEQ TABLET SR PO SCH (16:15)
[2023-07-15] MEDS ORDERED: KCL 10MEQ/50ML PREMIX 50 ML IV ONE (16:15)
[2023-07-15] MEDS ORDERED: KEPP500 MT (16:55)
[2023-07-15] MEDS ORDERED: POTA-205 MT (17:04)
[2023-07-15 17:23] VITALS: BP 132/61; PULSE 97; RESP 16; TEMP 98.5
== END 2023-07-15 17:24 | disposition home or self-care (01) ==
LOC: ER 13:49
DX: R56.9 Unspecified convulsions (principal); E87.6 Hypokalemia; F10.20 Alcohol dependence, uncomplicated; R74.01 Elevation of levels of liver transaminase levels; E11.9 Type 2 diabetes mellitus without complications; Y90.9 Presence of alcohol in blood, level not specified
CPT/HCPCS: 36415; 80053; 80320; 85025; 99284; J3480; G0480

== ENCOUNTER 2023-10-27 08:20 | Emergency (ER) | payer OTHER ==
[~2023-10-27] VITALS: Ht 175.3 cm; Wt 74.0 kg
[~2023-10-27 08:20] MED LIST changes: -AMOX-424 MT; -DICY20TA2 MT; -GUAI600T26 MT; -HYDR-4001 MT; -IBUP-2029 MT; +KEPP500 PO; -KETO10TA2 MT; -LEVE1000 MT; -MUPI22OI2 TOP; -OMEP20CA14 MT; -ONDA4TAB11 PO; -ONDA4TAB50 MT; -P20 PO; -THIA100T72 MT; -THIA100T72 PO
[2023-10-27 08:25] VITALS: BP 134/86; PULSE 95; RESP 16; TEMP 99.1; O2SAT 100
[2023-10-27] MEDS: LEVETIRACETAM 500MG TABLET PO ONE (09:15)
== END 2023-10-27 10:23 | disposition left against medical advice (07) ==
LOC: ER 08:20
DX: R56.9 Unspecified convulsions (principal); E11.9 Type 2 diabetes mellitus without complications; Z53.21 Procedure and treatment not carried out due to patient leaving prior to being seen by health care provider
CPT/HCPCS: 99283

== ENCOUNTER 2023-11-04 09:05 | Emergency (ER) | payer OTHER ==
[~2023-11-04] VITALS: Ht 167.6 cm; Wt 68.5 kg
[2023-11-04 09:11] VITALS: BP 155/107; PULSE 98; RESP 18; TEMP 98.7; O2SAT 98
== END 2023-11-04 11:43 | disposition left against medical advice (07) ==
LOC: ER 09:05
DX: R56.9 Unspecified convulsions (principal); Z53.21 Procedure and treatment not carried out due to patient leaving prior to being seen by health care provider

== ENCOUNTER 2023-11-06 11:49 | Emergency (ER) | payer OTHER ==
[~2023-11-06] VITALS: Ht 165.1 cm; Wt 70.0 kg
[2023-11-06 12:01] VITALS: TEMP 97.9; O2SAT 98
[2023-11-06] MEDS ORDERED: LEVE500T9 MT (12:20)
[2023-11-06] MEDS: LEVETIRACETAM 500MG TABLET PO ONE (12:35)
[2023-11-06 12:38] VITALS: BP 143/89; PULSE 67; RESP 15
== END 2023-11-06 12:40 | disposition home or self-care (01) ==
LOC: ER 11:49
DX: R56.9 Unspecified convulsions (principal); E11.9 Type 2 diabetes mellitus without complications
CPT/HCPCS: 99283

== ENCOUNTER 2023-12-08 11:11 | Emergency (ER) | payer OTHER ==
[~2023-12-08] VITALS: Ht 172.7 cm; Wt 82.0 kg
[~2023-12-08 11:11] MED LIST changes: +LEVE500T9 MT
[2023-12-08 11:22] VITALS: TEMP 98.2; O2SAT 97
[2023-12-08] MEDS ORDERED: METH-653 MT (11:58)
[2023-12-08 12:00] VITALS: BP 140/100; PULSE 99; RESP 16
[2023-12-08] MEDS: IBUPROFEN 600MG TABLET PO ONE (12:00)
== END 2023-12-08 13:40 | disposition home or self-care (01) ==
LOC: ER 11:11
DX: S09.90XA Unspecified injury of head, initial encounter (principal); M54.2 Cervicalgia; E11.9 Type 2 diabetes mellitus without complications; R56.9 Unspecified convulsions; Z79.899 Other long term (current) drug therapy; V49.59XA Passenger injured in collision with other motor vehicles in traffic accident, initial encounter; Y93.89 Activity, other specified; Y92.89 Other specified places as the place of occurrence of the external cause; Y99.8 Other external cause status
CPT/HCPCS: 99283

== ENCOUNTER 2023-12-16 20:12 | Emergency (ER) | payer OTHER ==
[~2023-12-16] VITALS: Ht 172.7 cm; Wt 69.0 kg
[~2023-12-16 20:12] MED LIST changes: +METH-653 MT
[2023-12-16 20:16] VITALS: TEMP 98.3; O2SAT 100
[2023-12-16] MEDS: LEVETIRACETAM 500MG PREMIX 100 ML IV ONE (21:12)
[2023-12-16 21:22] LABS: BASOPHILS % 0.8 % (0.0-2.0); EOSINOPHILS % 0.2 % (0.0-5.0); HEMOGLOBIN. 12.4 g/dL (14.0-18.0); LYMPHOCYTES % 16.6 % (20.0-50.0); MEAN CORPUSCULAR HEMOGLOBIN 31.5 pg (28.0-32.0); MEAN CORPUSCULAR HGB CONC 34.5 g/dL (31.0-37.0); MEAN CORPUSCULAR VOLUME 91.3 fL (80.0-94.0); MEAN PLATELET VOLUME 7.5 fl (7.4-10.4); MONOCYTES % 9.3 % (2.0-8.0); NEUTROPHILS % 73.1 % (40.0-76.0); PLATELET 92 x1000/uL (130-400); RED BLOOD CELL COUNT 3.95 mill/uL (4.7-6.1); RED CELL DISTRIBUTION WIDTH 15.9 % (11.6-14.6); WHITE BLOOD COUNT 4.1 x1000/uL (4.5-11.0)
[2023-12-16] MEDS: CHLORDIAZEPOXIDE 25MG CAPSULE PO ONE (21:29)
[2023-12-16 21:30] LABS: CHLORIDE 96 mEq/L (98-107); POTASSIUM 3.1 mEq/L (3.5-5.1); SODIUM 136 mEq/L (136-145)
[2023-12-16 21:31] LABS: CALCIUM 8.8 mg/dL (8.7-10.4); CARBON DIOXIDE 29 mEq/L (21-32)
[2023-12-16 21:36] LABS: CREATININE 0.8 mg/dL (0.6-1.3); GLUCOSE 91 mg/dL (70-105); UREA NITROGEN BLOOD 10 mg/dL (9-23)
[2023-12-16 21:38] LABS: ALANINE AMINOTRANSFERASE 82 IU/L (10-49); ALBUMIN 4.2 g/dL (3.2-4.8); ASPARTATE AMINOTRANSFERASE 285 IU/L (<34); BILIRUBIN TOTAL 1.8 mg/dL (0.1-1.0); PHOSPHORUS 3.5 mg/dL (2.5-4.9); PROTEIN TOTAL 7.2 g/dL (6.0-8.3)
[2023-12-16] MEDS ORDERED: POTA-354 MT (22:19)
[2023-12-16] MEDS ORDERED: MAGN400C MT (22:19)
[2023-12-16] MEDS ORDERED: KEPP500 PO (22:19)
[2023-12-16] MEDS: POTASSIUM CHLORIDE 20MEQ TABLET SR PO ONE (22:29)
[2023-12-16] MEDS: MAGNESIUM 2 G PREMIX 50 ML IV ONE (22:29)
[2023-12-17 00:04] VITALS: BP 144/97; PULSE 72; RESP 15
== END 2023-12-17 00:01 | disposition home or self-care (01) ==
LOC: ER 20:12
DX: F10.20 Alcohol dependence, uncomplicated (principal); R56.9 Unspecified convulsions; E87.6 Hypokalemia; E83.42 Hypomagnesemia; Y90.9 Presence of alcohol in blood, level not specified
CPT/HCPCS: 99284; 96365; 96367; 80053; 83735; 84100; 85025; 36415; J1953; J3475

== ENCOUNTER 2024-03-27 19:43 | Emergency (ER) | payer OTHER ==
[~2024-03-27] VITALS: Ht 175.3 cm; Wt 78.0 kg
[~2024-03-27 19:43] MED LIST changes: +MAGN400C MT; +POTA-354 MT
[2024-03-27 19:50] VITALS: BP 142/97; PULSE 78; RESP 16; TEMP 97.8; O2SAT 98
[2024-03-27] MEDS ORDERED: ONDANSETRON HCL 4MG TABLET PO ONE (21:00)
[2024-03-27] MEDS ORDERED: ASPIRIN 81MG TABLET PO ONE (21:00)
[2024-03-27] MEDS ORDERED: ACETAMINOPHEN 325MG TABLET PO ONE (21:00)
[2024-03-27 21:47] LABS: BASOPHILS % 0.8 % (0.0-2.0); HEMATOCRIT. 46.5 % (42.0-52.0); HEMOGLOBIN. 14.9 g/dL (14.0-18.0); LYMPHOCYTES % 36.3 % (20.0-50.0); MEAN CORPUSCULAR HEMOGLOBIN 27.7 pg (28.0-32.0); MEAN CORPUSCULAR VOLUME 86.5 fL (80.0-94.0); MEAN PLATELET VOLUME 8.1 fl (7.4-10.4); MONOCYTES % 3.2 % (2.0-8.0); NEUTROPHILS % 59.7 % (40.0-76.0); PLATELET 202 x1000/uL (130-400); RED BLOOD CELL COUNT 5.37 mill/uL (4.7-6.1); RED CELL DISTRIBUTION WIDTH 15.9 % (11.6-14.6); WHITE BLOOD COUNT 4.4 x1000/uL (4.5-11.0)
[2024-03-27 21:54] LABS: CHLORIDE 107 mEq/L (98-107); POTASSIUM 4.4 mEq/L (3.5-5.1); SODIUM 142 mEq/L (136-145)
[2024-03-27 21:55] LABS: CARBON DIOXIDE 24 mEq/L (21-32)
[2024-03-27 21:56] LABS: CALCIUM 8.9 mg/dL (8.7-10.4)
[2024-03-27 22:00] LABS: CREATININE 0.8 mg/dL (0.6-1.3); GLUCOSE 133 mg/dL (70-105)
[2024-03-27 22:01] LABS: UREA NITROGEN BLOOD 14 mg/dL (9-23)
[2024-03-27 22:02] LABS: ALANINE AMINOTRANSFERASE 79 IU/L (10-49); ALBUMIN 4.5 g/dL (3.2-4.8); ASPARTATE AMINOTRANSFERASE 84 IU/L (<34)
[2024-03-27 22:03] LABS: BILIRUBIN TOTAL 2.9 mg/dL (0.1-1.0); PROTEIN TOTAL 7.6 g/dL (6.0-8.3)
[2024-03-27 22:11] LABS: TROPONIN I HIGH SENSITIVITY < 4 ng/L (3.0-53)
[2024-03-28] MEDS: ACETAMINOPHEN 325MG TABLET PO NR (00:11)
[2024-03-28] MEDS: ONDANSETRON HCL 4MG TABLET PO NR (00:11)
[2024-03-28] MEDS: ASPIRIN 81MG TABLET PO NR (00:11)
== END 2024-03-28 00:17 | disposition home or self-care (01) ==
LOC: ER 19:43
DX: R07.89 Other chest pain (principal); R11.2 Nausea with vomiting, unspecified; E11.9 Type 2 diabetes mellitus without complications; Z79.899 Other long term (current) drug therapy
CPT/HCPCS: 99285; 71045; 80053; 85025; 84484; 36415; 93005; Q0162

== ENCOUNTER 2024-05-21 17:29 | Inpatient (IN) | payer OTHER ==
[~2024-05-21] VITALS: Ht 167.6 cm; Wt 68.1 kg
[~2024-05-21 17:29] MED LIST changes: -KEPP500 PO; -LEVE500T9 MT; -MAGN400C MT; -METH-653 MT; -POTA-354 MT
[2024-05-21] MEDS: LEVETIRACETAM 1000MG PREMIX 100 ML IV ONE (17:44)
[2024-05-21] MEDS: LORAZEPAM 2MG/ML INJ IV ONE (20:32)
[2024-05-21] MEDS: SODIUM CHLORIDE 0.9% 1,000 ML IV ONE (21:17)
[2024-05-21 22:30] LABS: BASOPHILS % 0.8 % (0.0-2.0); EOSINOPHILS % 0.1 % (0.0-5.0); HEMATOCRIT. 39.1 % (42.0-52.0); HEMOGLOBIN. 13.2 g/dL (14.0-18.0); LYMPHOCYTES % 34.9 % (20.0-50.0); MEAN CORPUSCULAR HEMOGLOBIN 29.5 pg (28.0-32.0); MEAN CORPUSCULAR HGB CONC 33.9 g/dL (31.0-37.0); MEAN CORPUSCULAR VOLUME 86.9 fL (80.0-94.0); MEAN PLATELET VOLUME 7.6 fl (7.4-10.4); MONOCYTES % 8.9 % (2.0-8.0); NEUTROPHILS % 55.3 % (40.0-76.0); PLATELET 95 x1000/uL (130-400); RED BLOOD CELL COUNT 4.49 mill/uL (4.7-6.1); RED CELL DISTRIBUTION WIDTH 21.9 % (11.6-14.6); WHITE BLOOD COUNT 3.7 x1000/uL (4.5-11.0)
[2024-05-21 22:38] LABS: PROTHROMBIN TIME 11.4 sec (9.6-11.0)
[2024-05-21 22:45] LABS: CHLORIDE 102 mEq/L (98-107); POTASSIUM 3.1 mEq/L (3.5-5.1); SODIUM 138 mEq/L (136-145)
[2024-05-21 22:46] LABS: CALCIUM 8.3 mg/dL (8.7-10.4); CARBON DIOXIDE 26 mEq/L (21-32)
[2024-05-21 22:51] LABS: CREATININE 0.9 mg/dL (0.6-1.3); GLUCOSE 75 mg/dL (70-105); UREA NITROGEN BLOOD 10 mg/dL (9-23)
[2024-05-21 22:57] LABS: ETHANOL BLOOD < 10 mg/dL (<10)
[2024-05-21] MEDS: DIPHENHYDRAMINE 50MG/ML VIAL IV NR (23:34)
[2024-05-21] MEDS: POTASSIUM CHLORIDE 20MEQ TABLET SR PO ONE (23:34)
[2024-05-22] MEDS ORDERED: IPRATROPIUM/ALBUTEROL 0.5-3(2.5)MG/3ML NEB HHN PRN (00:30)
[2024-05-22] MEDS ORDERED: ACETAMINOPHEN 325MG TABLET PO PRN ×2 (00:30)
[2024-05-22] MEDS ORDERED: DOCUSATE SODIUM 100MG CAPSULE PO PRN (00:30)
[2024-05-22] MEDS ORDERED: LORAZEPAM 2MG/ML INJ IV PRN (00:30)
[2024-05-22] MEDS ORDERED: GUAIFENESIN 200MG/10ML SUGAR FREE UDC PO PRN (00:30)
[2024-05-22] MEDS ORDERED: ONDANSETRON HCL 4MG/2ML INJ IV PRN (00:30)
[2024-05-22] MEDS ORDERED: MAGNESIUM/ALUMINUM HYDROXIDE/SIMETHICONE 30ML UDC PO PRN (00:30)
[2024-05-22] MEDS ORDERED: CLONIDINE 0.1MG TABLET PO PRN (00:30)
[2024-05-22] MEDS: POTASSIUM CHLORIDE 20MEQ/PACKET PO NR (02:02)
[2024-05-22] MEDS ORDERED: DEXTROSE 50% WATER 50ML SYRINGE IV PRN (02:30)
[2024-05-22] MEDS: DEXT 5%/LACTATED RINGERS 1,000 ML IV ONE (03:11)
[2024-05-22] MEDS: BLOOD SUGAR DIAGNOSTIC STRIP TEST SCH (06:16)
[2024-05-22 07:47] LABS: CREATINE KINASE 334 IU/L (46-171)
[2024-05-22] MEDS ORDERED: LEVETIRACETAM 500MG PREMIX 100 ML IV SCH (09:00)
[2024-05-22] MEDS: THIAMINE HCL 100MG TABLET PO SCH (09:54)
[2024-05-22] MEDS: FOLIC ACID 1MG TABLET PO SCH (09:54)
[2024-05-22 10:03] LABS: CLARITY URINE CLEAR (CLEAR); COLOR URINE YELLOW (YELLOW); GLUCOSE URINE NEGATIVE (NEGATIVE); KETONES URINE NEGATIVE (NEGATIVE); LEUKOCYTE ESTERASE URINE NEGATIVE (NEGATIVE); NITRITE URINE NEGATIVE (NEGATIVE); OCCULT BLOOD URINE NEGATIVE (NEGATIVE); PROTEIN URINE 2+ (NEGATIVE)
[2024-05-22 10:23] LABS: *AMPHETAMINES SCREEN URINE NEGATIVE (NEGATIVE); *BARBITURATES SCREEN URINE NEGATIVE (NEGATIVE); *BENZODIAZEPINES SCREEN URINE NEGATIVE (NEGATIVE); *COCAINE SCREEN URINE NEGATIVE (NEGATIVE)
[2024-05-22 10:24] LABS: CANNABINOID URINE SCREEN NEGATIVE (NEGATIVE); ECSTASY MDMA SCREEN URINE NEGATIVE (NEGATIVE); METHADONE URINE SCREEN NEGATIVE (NEGATIVE); OPIATES URINE SCREEN NEGATIVE (NEGATIVE); PHENCYCLIDINE URINE SCREEN NEGATIVE (NEGATIVE)
[2024-05-22 10:25] LABS: BACTERIA URINE RARE; RBC URINE NONE SEEN /hpf (0-2); SQUAMOUS EPITHELIAL CELL URINE NONE SEEN /lpf (RARE/1+); WBC URINE 0-2 /hpf (0-2); YEAST URINE NONE SEEN
[2024-05-22] MEDS: MAGNESIUM 4 G PREMIX 100 ML IV NR (11:05)
[2024-05-22 12:00] VITALS: BP 139/86; PULSE 89; RESP 18; TEMP 36.78072; O2SAT 98
[2024-05-22 15:18] LABS: CREATINE KINASE 337 IU/L (46-171)
[2024-05-22 16:00] VITALS: BP 129/85; PULSE 80; RESP 20; TEMP 37.11408; O2SAT 100
[2024-05-22 16:26] VITALS: BP 137/80; PULSE 89; RESP 18; TEMP 37.0852
[2024-05-22 20:00] VITALS: BP 132/95; PULSE 94; RESP 20; TEMP 36.22512; O2SAT 99
[2024-05-22] MEDS ORDERED: LEVETIRACETAM 1,000MG in NACL 100ML PREMIX IV SCH (21:00)
[2024-05-22] MEDS: LEVETIRACETAM 1000MG PREMIX 100 ML IV SCH (22:50)
[2024-05-23] VITALS: BP 140/97; PULSE 96; RESP 19; TEMP 36.114; O2SAT 98
[2024-05-23 04:00] VITALS: BP 128/90; PULSE 98; RESP 20; TEMP 36.3918; O2SAT 100
[2024-05-23 06:25] LABS: BASOPHILS % 0.5 % (0.0-2.0); DIFFERENTIAL COMMENT 0; EOSINOPHILS % 1.5 % (0.0-5.0); HEMATOCRIT. 41.2 % (42.0-52.0); HEMOGLOBIN. 13.8 g/dL (14.0-18.0); LYMPHOCYTES % 34.2 % (20.0-50.0); MEAN CORPUSCULAR HEMOGLOBIN 29.7 pg (28.0-32.0); MEAN CORPUSCULAR HGB CONC 33.5 g/dL (31.0-37.0); MEAN CORPUSCULAR VOLUME 88.6 fL (80.0-94.0); MEAN PLATELET VOLUME 8.1 fl (7.4-10.4); MONOCYTES % 11.3 % (2.0-8.0); NEUTROPHILS % 52.5 % (40.0-76.0); PLATELET 102 x1000/uL (130-400); RED BLOOD CELL COUNT 4.65 mill/uL (4.7-6.1); RED CELL DISTRIBUTION WIDTH 21.4 % (11.6-14.6); WHITE BLOOD COUNT 3.8 x1000/uL (4.5-11.0)
[2024-05-23 06:29] LABS: CHLORIDE 102 mEq/L (98-107); POTASSIUM 4.2 mEq/L (3.5-5.1); SODIUM 136 mEq/L (136-145)
[2024-05-23 06:30] LABS: CALCIUM 9.3 mg/dL (8.7-10.4); CARBON DIOXIDE 26 mEq/L (21-32)
[2024-05-23 06:35] LABS: CREATININE 0.8 mg/dL (0.6-1.3); GLUCOSE 110 mg/dL (70-105); TRIGLYCERIDE 85 mg/dL (0-150); UREA NITROGEN BLOOD 9 mg/dL (9-23)
[2024-05-23 06:36] LABS: LDL CHOLESTEROL 102 mg/dL (5-100)
[2024-05-23 06:37] LABS: ALANINE AMINOTRANSFERASE 109 IU/L (10-49); ALBUMIN 4.4 g/dL (3.2-4.8); ASPARTATE AMINOTRANSFERASE 382 IU/L (<34); BILIRUBIN DIRECT 0.5 mg/dL (<=3.0); BILIRUBIN TOTAL 1.6 mg/dL (0.1-1.0); CHOLESTEROL 248 mg/dL (<200); HDL CHOLESTEROL 115 mg/dL (>55); PHOSPHORUS 3.3 mg/dL (2.5-4.9)
[2024-05-23 06:38] LABS: PROTEIN TOTAL 7.5 g/dL (6.0-8.3); T4 FREE 1.59 ng/dL (0.89-1.76); THYROID STIMULATING HORMONE 3.72 uIU/mL (0.55-4.78)
[2024-05-23 08:00] VITALS: BP 102/74; PULSE 66; RESP 20; TEMP 36.61404; O2SAT 98
[2024-05-23 12:09] VITALS: BP 117/85; PULSE 76; RESP 20; TEMP 36.61404; O2SAT 100
[2024-05-23] MEDS ORDERED: KEPP500 MT (12:11)
[2024-05-23 12:30] VITALS: BP 117/85; PULSE 76; TEMP 97.9; O2SAT 100
[2024-05-23] MEDS ORDERED: KEPP500 PO (12:35)
== END 2024-05-23 13:35 | disposition home or self-care (01) | DRG 101 ==
LOC: ER 17:29 → EDBEDREQ 23:20 → 5WST 23:52 → 7WST 05-22 08:24
PROVIDERS: ADMIT Internal Medicine; ATTEND Internal Medicine
DX: G40.909 Epilepsy, unspecified, not intractable, without status epilepticus (principal); D61.818 Other pancytopenia; F43.10 Post-traumatic stress disorder, unspecified; F41.9 Anxiety disorder, unspecified; G47.00 Insomnia, unspecified; E11.9 Type 2 diabetes mellitus without complications; E87.6 Hypokalemia; Z91.148 Patient's other noncompliance with medication regimen for other reason; Z79.899 Other long term (current) drug therapy; X58.XXXA Exposure to other specified factors, initial encounter; Y93.89 Activity, other specified; Y92.89 Other specified places as the place of occurrence of the external cause; Y99.8 Other external cause status; F10.129 Alcohol abuse with intoxication, unspecified
CPT/HCPCS: 36415; 80048; 80061; 80076; 80305; 80320; 81003; 82542; 82550; 82962; 83036; 83735; 84100; 84132; 84439; 84443; 85025; 97166; 99285; J1200; J1953; J2060; J3475; J7030; G0480

== ENCOUNTER 2024-06-16 18:38 | Emergency (ER) | payer OTHER ==
[~2024-06-16] VITALS: Ht 165.1 cm; Wt 70.0 kg
[~2024-06-16 18:38] MED LIST changes: -KEPP500 MT; +KEPP500 PO
[2024-06-16 18:54] VITALS: BP 112/80; PULSE 72; RESP 16; TEMP 97.9; O2SAT 97
[2024-06-16] MEDS ORDERED: LEVETIRACETAM 500MG TABLET PO NR (19:15)
[2024-06-16 21:29] LABS: BASOPHILS % 1.2 % (0.0-2.0); EOSINOPHILS % 0.1 % (0.0-5.0); HEMATOCRIT. 41.1 % (42.0-52.0); HEMOGLOBIN. 13.8 g/dL (14.0-18.0); LYMPHOCYTES % 48.5 % (20.0-50.0); MEAN CORPUSCULAR HGB CONC 33.5 g/dL (31.0-37.0); MEAN CORPUSCULAR VOLUME 92.3 fL (80.0-94.0); MEAN PLATELET VOLUME 7.6 fl (7.4-10.4); MONOCYTES % 4.3 % (2.0-8.0); NEUTROPHILS % 45.9 % (40.0-76.0); PLATELET 222 x1000/uL (130-400); RED BLOOD CELL COUNT 4.45 mill/uL (4.7-6.1); WHITE BLOOD COUNT 5.2 x1000/uL (4.5-11.0)
[2024-06-16 21:35] LABS: CHLORIDE 108 mEq/L (98-107); POTASSIUM 3.9 mEq/L (3.5-5.1); SODIUM 145 mEq/L (136-145)
[2024-06-16 21:36] LABS: CARBON DIOXIDE 24 mEq/L (21-32)
[2024-06-16 21:37] LABS: CALCIUM 8.9 mg/dL (8.7-10.4)
[2024-06-16 21:41] LABS: CREATININE 0.8 mg/dL (0.6-1.3); GLUCOSE 85 mg/dL (70-105)
[2024-06-16 21:42] LABS: UREA NITROGEN BLOOD 9 mg/dL (9-23)
[2024-06-16 21:51] LABS: ETHANOL BLOOD 286 mg/dL (<10)
== END 2024-06-17 02:20 | disposition home or self-care (01) ==
LOC: ER 18:38
DX: F10.90 Alcohol use, unspecified, uncomplicated (principal); Z91.148 Patient's other noncompliance with medication regimen for other reason; E11.9 Type 2 diabetes mellitus without complications; Z79.899 Other long term (current) drug therapy; Y90.9 Presence of alcohol in blood, level not specified
CPT/HCPCS: 36415; 80048; 80320; 85025; 99283; G0480

== ENCOUNTER 2024-12-02 12:19 | Emergency (ER) | payer OTHER ==
[~2024-12-02] VITALS: Ht 177.8 cm; Wt 82.0 kg
[2024-12-02 12:28] VITALS: O2SAT 100
[2024-12-02] MEDS: LEVETIRACETAM 1000MG PREMIX 100 ML IV SCH (15:10)
[2024-12-02 15:28] LABS: BASOPHILS % 0.4 % (0.0-2.0); EOSINOPHILS % 0.4 % (0.0-5.0); HEMATOCRIT. 40.5 % (42.0-52.0); HEMOGLOBIN. 14.1 g/dL (14.0-18.0); LYMPHOCYTES % 33.2 % (20.0-50.0); MEAN CORPUSCULAR HEMOGLOBIN 30.4 pg (28.0-32.0); MEAN CORPUSCULAR HGB CONC 34.7 g/dL (31.0-37.0); MEAN CORPUSCULAR VOLUME 87.6 fL (80.0-94.0); MEAN PLATELET VOLUME 7.9 fl (7.4-10.4); MONOCYTES % 10.3 % (2.0-8.0); NEUTROPHILS % 55.7 % (40.0-76.0); PLATELET 162 x1000/uL (130-400); RED BLOOD CELL COUNT 4.62 mill/uL (4.7-6.1); RED CELL DISTRIBUTION WIDTH 17.8 % (11.6-14.6); WHITE BLOOD COUNT 4.2 x1000/uL (4.5-11.0)
[2024-12-02 15:38] LABS: PROTHROMBIN TIME 11.1 sec (9.6-11.0)
[2024-12-02 15:40] LABS: CALCIUM 8.5 mg/dL (8.7-10.4); CARBON DIOXIDE 26 mEq/L (21-32); CHLORIDE 97 mEq/L (98-107); POTASSIUM 3.3 mEq/L (3.5-5.1); SODIUM 133 mEq/L (136-145)
[2024-12-02 15:44] LABS: CREATININE 0.7 mg/dL (0.6-1.3); GLUCOSE 94 mg/dL (70-105)
[2024-12-02 15:45] LABS: ETHANOL BLOOD < 10 mg/dL (<10); UREA NITROGEN BLOOD 9 mg/dL (9-23)
[2024-12-02 15:46] LABS: ALANINE AMINOTRANSFERASE 18 IU/L (10-49); ALBUMIN 4.7 g/dL (3.2-4.8); ASPARTATE AMINOTRANSFERASE 38 IU/L (<34); BILIRUBIN DIRECT 0.6 mg/dL (<=3.0)
[2024-12-02 15:47] LABS: BILIRUBIN TOTAL 2.1 mg/dL (0.1-1.0); PROTEIN TOTAL 7.6 g/dL (6.0-8.3)
[2024-12-02 15:48] LABS: TROPONIN I HIGH SENSITIVITY < 4 ng/L (3.0-53)
[2024-12-02 18:34] LABS: CLARITY URINE CLEAR (CLEAR); COLOR URINE YELLOW (YELLOW); GLUCOSE URINE NEGATIVE (NEGATIVE); KETONES URINE TRACE (NEGATIVE); LEUKOCYTE ESTERASE URINE TRACE (NEGATIVE); NITRITE URINE NEGATIVE (NEGATIVE); OCCULT BLOOD URINE NEGATIVE (NEGATIVE); PH URINE 6.5 (4.5-8.0); PROTEIN URINE 2+ (NEGATIVE); SPECIFIC GRAVITY URINE 1.015 (1.005-1.030)
[2024-12-02 18:51] VITALS: TEMP 36.7
[2024-12-02 18:52] LABS: *AMPHETAMINES SCREEN URINE NEGATIVE (NEGATIVE); *BARBITURATES SCREEN URINE NEGATIVE (NEGATIVE); *BENZODIAZEPINES SCREEN URINE NEGATIVE (NEGATIVE); *COCAINE SCREEN URINE NEGATIVE (NEGATIVE); BACTERIA URINE 1+; CANNABINOID URINE SCREEN NEGATIVE (NEGATIVE); ECSTASY MDMA SCREEN URINE NEGATIVE (NEGATIVE); METHADONE URINE SCREEN NEGATIVE (NEGATIVE); OPIATES URINE SCREEN NEGATIVE (NEGATIVE); PHENCYCLIDINE URINE SCREEN NEGATIVE (NEGATIVE); WBC URINE 0-2 /hpf (0-2)
[2024-12-02 18:53] LABS: RBC URINE 0-2 /hpf (0-2); SQUAMOUS EPITHELIAL CELL URINE FEW /lpf (RARE/1+)
[2024-12-02] MEDS ORDERED: KEPP500 MT (19:04)
[2024-12-02 19:31] VITALS: BP 117/78; PULSE 92; RESP 12; O2SAT 95
== END 2024-12-02 19:40 | disposition home or self-care (01) ==
LOC: ER 12:19
DX: G40.909 Epilepsy, unspecified, not intractable, without status epilepticus (principal); E11.9 Type 2 diabetes mellitus without complications; F10.90 Alcohol use, unspecified, uncomplicated; R07.9 Chest pain, unspecified; F17.200 Nicotine dependence, unspecified, uncomplicated; Z79.899 Other long term (current) drug therapy; Z91.148 Patient's other noncompliance with medication regimen for other reason
CPT/HCPCS: 80076; 80305; 80048; 81003; 80320; 83690; 85025; 85610; 84484; 36415; 71045; 70450; 93005; 96365; 99285; J1953; A4606; G0480

== ENCOUNTER 2025-01-17 15:21 | Inpatient (IN) | payer OTHER ==
[~2025-01-17] VITALS: Ht 167.6 cm; Wt 69.9 kg
[~2025-01-17 15:21] MED LIST changes: +KEPP500 MT
[2025-01-17 16:26] LABS: BASOPHILS % 0.3 % (0.0-2.0); EOSINOPHILS % 0.1 % (0.0-5.0); HEMATOCRIT. 36.6 % (42.0-52.0); HEMOGLOBIN. 13.0 g/dL (14.0-18.0); LYMPHOCYTES % 13.0 % (20.0-50.0); MEAN PLATELET VOLUME 6.6 fl (7.4-10.4); MONOCYTES % 5.2 % (2.0-8.0); NEUTROPHILS % 81.4 % (40.0-76.0); PLATELET 105 x1000/uL (130-400); RED BLOOD CELL COUNT 3.91 mill/uL (4.7-6.1); RED CELL DISTRIBUTION WIDTH 15.6 % (11.6-14.6)
[2025-01-17] MEDS: LEVETIRACETAM 500MG PREMIX 100 ML IV ONE (16:34)
[2025-01-17] MEDS: ONDANSETRON HCL 4MG/2ML INJ IV ONE (16:34)
[2025-01-17 16:43] LABS: CREATININE 0.9 mg/dL (0.6-1.3)
[2025-01-17 16:44] LABS: UREA NITROGEN BLOOD 7 mg/dL (9-23)
[2025-01-17 16:45] LABS: ASPARTATE AMINOTRANSFERASE > 1000 IU/L (<34)
[2025-01-17 16:46] LABS: BILIRUBIN DIRECT 0.9 mg/dL (<=3.0); BILIRUBIN TOTAL 2.1 mg/dL (0.1-1.0); PROTEIN TOTAL 7.5 g/dL (6.0-8.3)
[2025-01-17] MEDS: SODIUM CHLORIDE 0.9% 1,000 ML IV ONE (18:40)
[2025-01-17] MEDS: KCL 10MEQ/50ML PREMIX 50 ML IV ONE (19:57)
[2025-01-17 21:52] LABS: HEPATITIS A AB IGM NEGATIVE (Negative)
[2025-01-17 21:53] LABS: HEPATITIS B CORE AB IGM NEGATIVE (Negative); HEPATITIS C AB NON REACTIVE (Neg) (Negative)
[2025-01-17 22:00] VITALS: BP 152/75; PULSE 83; RESP 18; TEMP 36.696
[2025-01-17] MEDS: AMLODIPINE 10MG TABLET PO SCH (22:36)
[2025-01-17] MEDS: CHLORDIAZEPOXIDE 25MG CAPSULE PO SCH (22:36)
[2025-01-18] VITALS: BP 137/93; PULSE 91; RESP 18; TEMP 36.6; O2SAT 96
[2025-01-18 03:56] VITALS: BP 128/91; PULSE 88; RESP 16; TEMP 36.4; O2SAT 99
[2025-01-18] MEDS: PANTOPRAZOLE 40MG DR TABLET PO SCH (06:41)
[2025-01-18 08:00] VITALS: BP 115/80; PULSE 83; RESP 18; TEMP 36.7; O2SAT 96
[2025-01-18] MEDS: THIAMINE HCL 100MG TABLET PO SCH (09:08)
[2025-01-18] MEDS: LEVETIRACETAM 500MG TABLET PO SCH (09:08)
[2025-01-18] MEDS: MULTIVITAMINS,THER W-MINERALS TABLET PO SCH (09:08)
[2025-01-18] MEDS: FOLIC ACID 1MG TABLET PO SCH (09:08)
[2025-01-18] MEDS ORDERED: ACETAMINOPHEN 325MG TABLET PO PRN (09:15)
[2025-01-18] MEDS ORDERED: DEXTROSE 50% WATER 50ML SYRINGE IV PRN (09:15)
[2025-01-18] MEDS ORDERED: ONDANSETRON HCL 4MG/2ML INJ IV PRN (09:15)
[2025-01-18 09:31] LABS: PLATELET 99 x1000/uL (130-400); RED BLOOD CELL COUNT 4.11 mill/uL (4.7-6.1); RED CELL DISTRIBUTION WIDTH 15.6 % (11.6-14.6)
[2025-01-18 09:43] LABS: CREATININE 0.8 mg/dL (0.6-1.3); UREA NITROGEN BLOOD 6 mg/dL (9-23)
[2025-01-18 12:00] VITALS: BP 120/92; PULSE 100; RESP 18; TEMP 36.4; O2SAT 97
[2025-01-18] MEDS: BLOOD SUGAR DIAGNOSTIC STRIP TEST SCH (12:28)
[2025-01-18] MEDS: INSULIN LISPRO 100 UNITS/ML SUBCUT SCH (12:46)
[2025-01-18 16:00] VITALS: BP 101/66; PULSE 78; RESP 18; TEMP 36.2; O2SAT 97
[2025-01-18 20:00] VITALS: BP 114/85; PULSE 89; RESP 17; TEMP 36.3; O2SAT 98
[2025-01-18] MEDS ORDERED: LEVETIRACETAM 500MG TABLET PO SCH (21:00)
[2025-01-18 21:33] LABS: ETHANOL BLOOD < 10 mg/dL (<10); TRIGLYCERIDE 67 mg/dL (0-150)
[2025-01-18 21:34] LABS: LDL CHOLESTEROL 99 mg/dL (5-100)
[2025-01-18 21:39] LABS: VITAMIN B12 SERUM 1601 pg/mL (211-911)
[2025-01-18] MEDS: POTASSIUM CHLORIDE 20MEQ TABLET SR PO SCH (22:31)
[2025-01-19] VITALS: BP 110/80; PULSE 80; RESP 16; TEMP 37.1; O2SAT 97
[2025-01-19 03:34] LABS: CLARITY URINE CLEAR (CLEAR); COLOR URINE DARK YELLOW (YELLOW); GLUCOSE URINE NEGATIVE (NEGATIVE); KETONES URINE TRACE (NEGATIVE); LEUKOCYTE ESTERASE URINE NEGATIVE (NEGATIVE); NITRITE URINE NEGATIVE (NEGATIVE); OCCULT BLOOD URINE NEGATIVE (NEGATIVE); PH URINE 6.0 (4.5-8.0); PROTEIN URINE 3+ (NEGATIVE); SPECIFIC GRAVITY URINE 1.015 (1.005-1.030); UROBILINOGEN URINE 1.0 E.U./dL (0.2-1.0)
[2025-01-19 03:47] LABS: *AMPHETAMINES SCREEN URINE NEGATIVE (NEGATIVE); *BARBITURATES SCREEN URINE NEGATIVE (NEGATIVE); *BENZODIAZEPINES SCREEN URINE NEGATIVE (NEGATIVE)
[2025-01-19 03:48] LABS: *COCAINE SCREEN URINE NEGATIVE (NEGATIVE); CANNABINOID URINE SCREEN NEGATIVE (NEGATIVE); ECSTASY MDMA SCREEN URINE NEGATIVE (NEGATIVE); METHADONE URINE SCREEN NEGATIVE (NEGATIVE); OPIATES URINE SCREEN NEGATIVE (NEGATIVE); PHENCYCLIDINE URINE SCREEN NEGATIVE (NEGATIVE)
[2025-01-19 03:57] LABS: BACTERIA URINE TRACE; RBC URINE NONE SEEN /hpf (0-2); SQUAMOUS EPITHELIAL CELL URINE NONE SEEN /lpf (RARE/1+); WBC URINE 0-2 /hpf (0-2)
[2025-01-19 04:00] VITALS: BP 97/73; PULSE 70; RESP 18; TEMP 36.5; O2SAT 97
[2025-01-19 08:00] VITALS: BP 111/70; PULSE 75; RESP 18; TEMP 36.1; O2SAT 97
[2025-01-19 08:11] LABS: BASOPHILS % 0.3 % (0.0-2.0); EOSINOPHILS % 1.4 % (0.0-5.0); HEMATOCRIT. 39.0 % (42.0-52.0); HEMOGLOBIN. 13.5 g/dL (14.0-18.0); LYMPHOCYTES % 36.9 % (20.0-50.0); MEAN PLATELET VOLUME 8.6 fl (7.4-10.4); MONOCYTES % 7.1 % (2.0-8.0); NEUTROPHILS % 54.3 % (40.0-76.0); PLATELET 89 x1000/uL (130-400); RED BLOOD CELL COUNT 4.04 mill/uL (4.7-6.1); RED CELL DISTRIBUTION WIDTH 15.7 % (11.6-14.6)
[2025-01-19 08:29] LABS: CREATININE 0.8 mg/dL (0.6-1.3); UREA NITROGEN BLOOD 11 mg/dL (9-23)
[2025-01-19] MEDS ORDERED: MULTIVITAMINS,THER W-MINERALS TABLET PO SCH (09:00)
[2025-01-19] MEDS ORDERED: FOLIC ACID 1MG TABLET PO SCH (09:00)
[2025-01-19] MEDS ORDERED: THIAMINE HCL 100MG TABLET PO SCH (09:00)
[2025-01-19] MEDS: FOLIC ACID/VITAMIN B COMP W-C TABLET PO SCH (09:27)
[2025-01-19] MEDS: PANTOPRAZOLE SODIUM 40 MG/VIAL IV SCH (09:27)
[2025-01-19] MEDS: POTASSIUM CHLORIDE 20MEQ TABLET SR PO SCH (10:26)
[2025-01-19 12:00] VITALS: BP 122/72; PULSE 103; RESP 18; TEMP 36.3; O2SAT 99
[2025-01-19 13:41] VITALS: BP 122/72; PULSE 18; TEMP 97.3; O2SAT 99
== END 2025-01-19 15:23 | disposition home or self-care (01) | DRG 101 ==
LOC: ER 15:21 → 5WST 20:20 → EDBEDREQTM 20:42 → EDBEDREQ 20:42 → ENRESERV 21:14
PROVIDERS: ADMIT Internal Medicine; ATTEND Internal Medicine
DX: G40.909 Epilepsy, unspecified, not intractable, without status epilepticus (principal); F10.10 Alcohol abuse, uncomplicated; E11.9 Type 2 diabetes mellitus without complications; I10 Essential (primary) hypertension; R74.01 Elevation of levels of liver transaminase levels; E87.6 Hypokalemia; E80.6 Other disorders of bilirubin metabolism; Y90.0 Blood alcohol level of less than 20 mg/100 ml; Z79.899 Other long term (current) drug therapy; Z71.41 Alcohol abuse counseling and surveillance of alcoholic
CPT/HCPCS: 36415; 71045; 80048; 80061; 80076; 80305; 80320; 81003; 82140; 82607; 82962; 83036; 85025; 85027; 86705; 86709; 87340; 93005; 96365; 96366; 96368; 96375; 99285; A4606; J1815; J1953; J2405; J2470; J3480; J7030; G0480